=== PATIENT | male | born 1960 | race Caucasian/White ===

== ENCOUNTER 2017-10-14 11:33 | Emergency (ER) | payer BC ==
[2017-10-14] MEDS ORDERED: 0.9 % SODIUM CHLORIDE 1,000 ML BAG IV ONE ×2 (11:45→11:48)
[2017-10-14] MEDS ORDERED: ONDANSETRON HCL IV 4 MG/2 ML VIAL IVP ONE (11:48)
--- NOTE | 2017-10-14 11:49 | Emergency Department Record ---
History of Present Illness - General Chief Complaint: Cough Stated Complaint: COUGHING/LOOSE STOOLS/VOMITING Time Seen by Provider: 10/14/17 11:44 Source: Patient Mode of Arrival: Ambulatory Limitations: No limitations - History of Present Illness Initial Comments: 57 yo male presents with nausea, vomiting and loose stools for about 3 days. He has some associated abdominal pain. He reports a history of diverticulitis in the past. He reports the symptoms are similar. No fever. He has also had an associated cough with sputum for a month. He continues to smoke. No PCP. MD Complaint: Abdominal pain Onset/Timin -: Days(s) Location: LLQ Radiation: LLQ Severity: Moderate Quality: Aching Consistency: Constant Improves With: Nothing Worsens With: Eating - Related Data Previous Rx's Medication Instructions Recorded Amoxicillin/Potassium Clav 1 tab PO BID #14 tab 10/14/17 [Augmentin 875-125 Tablet] Ondansetron [Zofran Odt] 4 mg PO Q8H #15 tab.rapdis 10/14/17 Allergies Allergy/AdvReac Type Severity Reaction Status Date / Time No Known Allergies Allergy HYPERSENSIT Verified 10/14/17 11:45 IVITY Travel Screening - Travel/Exposure Within Last 30 Days Have you traveled within the last 30 days?: No - Travel/Exposure Within Last Year Have you traveled outside the [place] in the last year?: No - Additonal Travel Details Have you been exposed to anyone with a communicable illness?: No - Travel Symptoms Symptom Screening: None Review of Systems Constitutional: Denies: Chills, Fever, Malaise, Weakness Eyes: Denies: Eye discharge, Eye pain, Photophobia, Vision change ENT: Reports: Congestion Respiratory: Reports: Cough Cardiovascular: Denies: Chest pain, Edema, Palpitations, Syncope Endocrine: Denies: Fatigue, Polydipsia, Polyuria Gastrointestinal: Reports: Abdominal pain, Diarrhea, Nausea, Vomiting Genitourinary: Denies: Dysuria, Frequency, Hematuria Musculoskeletal: Denies: Arthralgia, Back pain, Myalgia Skin: Denies: Bruising, Change in color, Rash Neurological: Denies: Headache, Numbness, Weakness Psychiatric: Denies: Anxiety Hematological/Lymphatic: Denies: Blood Clots, Easy bleeding, Easy bruising, Swollen glands Past Medical History - SOCIAL HISTORY Smoking Status: Current every day smoker Alcohol Use: None, Rare Drug Use: None - RESPIRATORY Hx Asthma: Yes - CARDIOVASCULAR Hx Cardio Disorders: Yes Hx Hypertension: Yes Comment:: hyperlipidemia - NEURO Hx Neuro Disorders: No - GI Hx Diverticulitis: Yes Hx Reflux: Yes - Hx Genitourinary Disorders: No - ENDOCRINE Hx Endocrine Disorders: No - MUSCULOSKELETAL Hx Musculoskeletal Disorders: No - PSYCH Hx Psych Problems: No - HEMATOLOGY/ONCOLOGY Hx Hematology/Oncology Disorders: No Family Medical History Any Significant Family History?: Yes Physical Exam - General General Appearance: Alert, Oriented x3, Cooperative, No acute distress - Head Head exam: Atraumatic, Normal inspection - Eye Eye exam: Normal appearance. negative: Conjunctival injection - ENT ENT exam: Normal exam, Mucous membranes moist Ear exam: Normal external inspection Nasal Exam: Normal inspection Mouth exam: Normal external inspection - Neck Neck exam: Normal inspection, Full ROM. negative: Tenderness - Respiratory Respiratory exam: Decreased breath sounds, Rhonchi. negative: Accessory muscle use, Prolonged expiratory, Respiratory distress, Stridor, Wheezes - Cardiovascular Cardiovascular Exam: Regular rate, Normal rhythm, Normal heart sounds Peripheral Pulses: 2+: Radial (R), Radial (L) - GI/Abdominal GI/Abdominal exam: Soft, Tenderness. negative: Distended, Guarding, Rebound, Rigid - Rectal Rectal exam: Deferred - exam: Deferred - Extremities Extremities exam: Normal inspection, Full ROM, Normal capillary refill. negative: Tenderness - Back Back exam: Reports: Normal inspection, Full ROM. Denies: Muscle spasm, Rash noted, Tenderness - Neurological Neurological exam: Alert, Normal gait, Oriented X3 - Psychiatric Psychiatric exam: Normal affect, Normal mood - Skin Skin exam: Dry, Intact, Normal color, Warm Course Vital Signs 10/14/17 11:39 Temperature 97.9 F Pulse Rate 69 Respiratory 18 Rate Blood Pressure 165/100 Pulse Ox 96 - Reevaluation(s) Reevaluation #1: 10/14/17 13:16 The labs were reviewed No acute changes on the CBC, CMP or Lipase. 10/14/17 13:[address] scan of the abdomen and pelvis was negative for acute changes. Diverticulosis with diverticulitis. CXR was negative His vitals are unremarkable, the labs are negative. He will be given antibiotics for his productive cough and zofran for nausea Medical Decision Making - Lab Data Result diagrams: 10/14/17 11:52 10/14/17 11:52 Disposition Disposition: Discharge Clinical Impression: Bronchitis, Diarrhea Disposition: Home, Self-Care Condition: (1) Good Instructions: Acute Bronchitis (ED), Diverticulosis (ED) Additional Instructions: Rest and stay well hydrated Return if worse, fever, vomiting uncontrolled or any new concerns Call Dr Torres for close follow up Prescriptions: Amoxicillin/Potassium Clav [Augmentin 875-125 Tablet] 1 tab PO BID #14 tab Ondansetron [Zofran Odt] 4 mg PO Q8H #15 tab.rapdis Forms: Patient Portal Access Time of Disposition: 13:40 Quality - Quality Measures Quality Measures: N/A - Blood Pressure Screening Does Patient Have Any of the Following: No Blood Pressure Classification: Hypertensive Reading Systolic Measurement: 165 Diastolic Measurement: 100 Screening for High Blood Pressure: < Pre-Hypertensive BP, F/U Documented > [ G8950] Pre-Hypertensive Follow-up Interventions: Referral to alternative/primary care provider.
[2017-10-14 12:11] LABS: GRAN % 68.7 % (47-80); HEMATOCRIT 48.9 % (42.0-52.0); HEMOGLOBIN 17.1 gm/dl (14.0-18.0); LYMPH % 18.6 % (16-45); MEAN CELL VOLUME 90.4 fl (81-97); MEAN CORPUSCULAR HEMOGLOBIN 31.6 pg (27-33); MEAN PLATELET VOLUME 9.5 fl (7.4-10.4); MONO % 10.7 % (0-9); PLATELET COUNT 247 K/uL (130-400); RED BLOOD COUNT 5.41 M/uL (4.40-5.70); RED CELL DISTRIBUTION WIDTH 14.7 % (11.5-14.5); WHITE BLOOD COUNT W/O DIFF 7.3 K/uL (4.2-12.2)
[2017-10-14 12:22] LABS: BLOOD UREA NITROGEN 18 mg/dL (6-20); CREATININE 0.7 mg/dL (0.7-1.2); EST GLOMERULAR FILTRATION RATE > 60 mL/min; TOTAL PROTEIN 7.2 g/dL (6.6-8.7)
[2017-10-14 12:24] LABS: GLUCOSE,RANDOM 113 mg/dL (74-109)
[2017-10-14 12:27] LABS: ALBUMIN 3.9 g/dL (4.0-5.0); ALKALINE PHOSPHATASE 99 U/L (40-129); ALT/SGPT 11 U/L (<41); AST/SGOT 20 U/L (10.0-50.0); BILIRUBIN,DIRECT 0.2 mg/dL (0-0.3); LIPASE 40 U/L (13-60)
--- NOTE | 2017-10-15 07:59 | RADIOLOGY REPORT ---
EXAM: CHEST, TWO VIEWS HISTORY: PRODUCTIVE COUGH FOR ONE MONTH. TECHNIQUE: Two views of the chest were obtained. Comparison: Abdomen CT same day. FINDINGS: The lungs are clear. The cardiac silhouette, diaphragm and osseous structures are unremarkable for age. IMPRESSION: NEGATIVE CHEST EXAMINATION. JOB NUMBER: [id number] MTDD
--- NOTE | 2017-10-15 08:05 | CT SCAN REPORT ---
EXAM: ABDOMEN AND PELVIS CT WITH IV CONTRAST HISTORY: ACUTE LEFT LOWER QUADRANT ABDOMINAL PAIN, NAUSEA, VOMITING AND DIARRHEA FOR ONE WEEK. HISTORY OF APPENDECTOMY AND HERNIA REPAIR. TECHNIQUE: Contiguous axial images from the lung bases to the symphysis pubis were obtained after the uneventful intravenous administration of 100 ml of Omnipaque 300. Oral contrast was also utilized. Comparison: Abdomen and pelvis CT 11/15/10. FINDINGS: There are two 3 mm nodules in the left lower lobe with no significance. The lung bases are clear. The liver and spleen are unremarkable. 1 cm cyst mid left kidney as well as lower pole left kidney. Normal right kidney. The adrenals, pancreas and gallbladder are normal. The visualized loops of small bowel are of normal caliber with no wall thickening. Small amount of fecal material throughout nondistended colon. Extensive diverticulosis of the descending colon and sigmoid colon without evidence of acute diverticulitis. No free intraperitoneal fluid or adenopathy. Mild calcification of the abdominal aorta with no aneurysm. The mesenteric vessels are patent. The urinary bladder is decompressed. The abdominal wall is unremarkable. Left hip arthroplasty. No lytic or blastic osseous lesion. IMPRESSION: 1. NO ACUTE INFLAMMATORY PROCESS OF THE ABDOMEN OR PELVIS. 2. EXTENSIVE SIGMOID COLON DIVERTICULOSIS WITH NO EVIDENCE OF DIVERTICULITIS. 3. BENIGN BOSNIAK TYPE 1 LEFT RENAL CYSTS. JOB NUMBER: [id number] [facility]
== END 2017-10-14 14:04 | disposition home or self-care (01) ==
LOC: ER 11:33
DX: J20.9 Acute bronchitis, unspecified (principal); R19.7 Diarrhea, unspecified; R11.2 Nausea with vomiting, unspecified; R10.32 Left lower quadrant pain
CPT/HCPCS: 99284 ×2; 96374; 96361; 83690; 85025; 80076; 80048; 71020; 74177; Q9967; J2405; J7030

== ENCOUNTER 2017-10-19 16:58 | Emergency (ER) | payer BC ==
[2017-10-19] MEDS ORDERED: ONDANSETRON HCL IV 4 MG/2 ML VIAL IV ONE (17:03)
[2017-10-19] MEDS ORDERED: 0.9 % SODIUM CHLORIDE 1,000 ML BAG IV ONE (17:03)
[2017-10-19] MEDS ORDERED: PANTOPRAZOLE SODIUM IV 40 MG VIAL IVP ONE (17:03)
--- NOTE | 2017-10-19 17:11 | Emergency Department Record ---
History of Present Illness - General Chief Complaint: Abdominal Pain Stated Complaint: ABD PAIN Time Seen by Provider: 10/19/17 17:03 Source: Patient, Family Mode of Arrival: Ambulatory Limitations: No limitations - History of Present Illness Initial Comments: 57 yo male presents with abdominal pain with eating. The onset was about one week ago. The pain started with loose stools. The loose stools have stopped. No fever. He reports he continues to have a decreased appetite. He states when he eats he gets pain pointing to the RUQ. The diarrhea has stopped. He also had a cough initially that has stopped as well. No blood in the stool or vomit. The patient was seen in the ER on 10/14 and had normal labs and normal CT scan. He states he is tolerating PO fluids but solid foods cause pain soon after eating and improve between means. MD Complaint: Abdominal pain -: Week(s) (7) Location: RUQ Radiation: RUQ Migration to: RUQ Severity: Moderate Quality: Cramping Consistency: Intermittent Improves With: Nothing Worsens With: Eating Associated Symptoms: Nausea, Vomiting, Other (Resolved cough and diarrhea) - Related Data Previous Rx's Medication Instructions Recorded Amoxicillin/Potassium Clav 1 tab PO BID #14 tab 10/14/17 [Augmentin 875-125 Tablet] Ondansetron [Zofran Odt] 4 mg PO Q8H #15 tab.rapdis 10/14/17 Hydrocodone/Acetaminophen [Williams 1 each PO Q6H #15 tablet 10/19/17 5-325 Tablet] Ondansetron [Zofran Odt] 4 mg PO Q8H #20 tab.rapdis 10/19/17 Allergies Allergy/AdvReac Type Severity Reaction Status Date / Time No Known Allergies Allergy HYPERSENSIT Verified 10/14/17 11:45 IVITY Review of Systems Constitutional: Denies: Chills, Fever, Malaise, Night sweats, Weakness Eyes: Denies: Eye discharge, Eye pain ENT: Denies: Congestion, Dental pain, Throat pain Respiratory: Denies: Cough (resolved), Dyspnea, Hemoptysis, Stridor, Wheezes Cardiovascular: Denies: Chest pain, Syncope Endocrine: Denies: Fatigue, Polydipsia, Polyuria Gastrointestinal: Reports: As per HPI, Abdominal pain, Nausea, Vomiting. Denies : Diarrhea (resolved), Hematochezia, Melena Genitourinary: Denies: Dysuria, Frequency, Hematuria Musculoskeletal: Denies: Arthralgia, Back pain, Joint swelling, Myalgia, Neck pain Neurological: Denies: Confusion, Headache, Numbness, Weakness Psychiatric: Denies: Anxiety Hematological/Lymphatic: Denies: Blood Clots, Easy bleeding, Easy bruising, Swollen glands Past Medical History - SOCIAL HISTORY Smoking Status: Current every day smoker Drug Use: None - RESPIRATORY Hx Asthma: Yes - CARDIOVASCULAR Hx Cardio Disorders: Yes Hx Hypertension: Yes Comment:: hyperlipidemia - NEURO Hx Neuro Disorders: No - GI Hx Diverticulitis: Yes Hx Reflux: Yes - Hx Genitourinary Disorders: No - ENDOCRINE Hx Endocrine Disorders: No - MUSCULOSKELETAL Hx Musculoskeletal Disorders: No - PSYCH Hx Psych Problems: No - HEMATOLOGY/ONCOLOGY Hx Hematology/Oncology Disorders: No Physical Exam - General General Appearance: Alert, Oriented x3, Cooperative, No acute distress Limitations: No limitations - Head Head exam: Atraumatic, Normal inspection - Eye Eye exam: Normal appearance. negative: Conjunctival injection, Periorbital swelling, Scleral icterus - ENT ENT exam: Normal exam, Mucous membranes moist Ear exam: Normal external inspection Nasal Exam: Normal inspection Mouth exam: Normal external inspection - Neck Neck exam: Normal inspection, Full ROM. negative: Tenderness - Respiratory Respiratory exam: Normal lung sounds bilaterally. negative: Respiratory distress - Cardiovascular Cardiovascular Exam: Regular rate, Normal rhythm, Normal heart sounds - GI/Abdominal GI/Abdominal exam: Soft, Tenderness (tender in the RUQ, soft non distended abdomen. the remainder of the abdomen is very soft and non tender) Course - Reevaluation(s) Reevaluation #1: 10/19/17 18:30 The CBC and CMP were reviewed No acute changes on the CBC The Lipase is elevated at 153 10/19/17 18:36 The patient is feeling much better he is tolerating PO fluids well I offered admission to the hospital for fluids and pain control for the abdominal pain with mild increase in Lipase He declined. He would like to be DC home and recheck in the ED this weekend I discussed the mild elevation in the Lipase. I explained a liquid diet over the weekend, no alcohol. I explained his negative recent CT on 10/14 and the negative US today He will be rechecked by me this weekend. If not improving recommend admission for further testing. 10/19/17 18:42 Medical Decision Making - Lab Data Result diagrams: 10/19/17 17:15 10/19/17 17:15 Disposition Disposition: Discharge Clinical Impression: Abdominal pain, Pancreatitis Disposition: Home, Self-Care Condition: (1) Good Instructions: Pancreatitis (ED), Abdominal Pain (ED) Additional Instructions: Return immediately if worse, vomiting, fever or any new symptoms Return to the ED on Sunday for a recheck You are to have clear liquids only until follow up Prescriptions: Hydrocodone/Acetaminophen [Williams 5-325 Tablet] 1 each PO Q6H #15 tablet Ondansetron [Zofran Odt] 4 mg PO Q8H #20 tab.rapdis Referrals: PAULINO BRASWELL [MEDICAL DOCTOR] - Forms: Patient Portal Access Time of Disposition: 18:40 Quality - Quality Measures Quality Measures: N/A - Blood Pressure Screening Does Patient Have Any of the Following: No Blood Pressure Classification: Hypertensive Reading Systolic Measurement: 183 Diastolic Measurement: 93 Screening for High Blood Pressure: < Pre-Hypertensive BP, F/U Documented > [ G8950] Pre-Hypertensive Follow-up Interventions: Referral to alternative/primary care provider.
[2017-10-19 17:38] LABS: BASO % 0.4 % (0-6); EOS % 0.5 % (0-6); GRAN % 72.3 % (47-80); HEMATOCRIT 47.6 % (42.0-52.0); HEMOGLOBIN 16.7 gm/dl (14.0-18.0); LYMPH % 16.6 % (16-45); MEAN CORPUSCULAR HEMOGLOBIN 31.6 pg (27-33); MEAN CORPUSCULAR HGB CONC 35.1 g/dl (32-36); MEAN PLATELET VOLUME 9.8 fl (7.4-10.4); MONO % 10.2 % (0-9); PLATELET COUNT 245 K/uL (130-400); RED BLOOD COUNT 5.29 M/uL (4.40-5.70); RED CELL DISTRIBUTION WIDTH 14.6 % (11.5-14.5); WHITE BLOOD COUNT W/O DIFF 10.9 K/uL (4.2-12.2)
[2017-10-19 17:46] LABS: INR 0.94; PARTIAL THROMBOPLASTIN TIME 28.7 SECONDS (24.5-39.1); PROTHROMBIN TIME (PATIENT) 10.1 SECONDS (9.5-12.1)
[2017-10-19 18:13] LABS: URINE APPEARANCE CLEAR; URINE BILIRUBIN NEGATIVE (NEGATIVE); URINE BLOOD SMALL (NEGATIVE); URINE COLOR YELLOW; URINE GLUCOSE (UA) NEGATIVE (NEGATIVE); URINE KETONE NEGATIVE (NEGATIVE); URINE LEUKOCYTE ESTERASE NEGATIVE (NEGATIVE); URINE NITRITE NEGATIVE (NEGATIVE); URINE UROBILINOGEN 0.2 E.U./dL (0.20 - 1.00)
[2017-10-19 18:17] LABS: BLOOD UREA NITROGEN 21 mg/dL (6-20); CREATININE 0.9 mg/dL (0.7-1.2); EST GLOMERULAR FILTRATION RATE > 60 mL/min
[2017-10-19 18:18] LABS: TOTAL PROTEIN 7.3 g/dL (6.6-8.7)
[2017-10-19 18:20] LABS: GLUCOSE,RANDOM 129 mg/dL (74-109)
[2017-10-19 18:22] LABS: ALBUMIN 3.7 g/dL (4.0-5.0); ALT/SGPT 15 U/L (<41); AST/SGOT 24 U/L (10.0-50.0)
[2017-10-19 18:23] LABS: ALKALINE PHOSPHATASE 108 U/L (40-129); LIPASE 153 U/L (13-60)
[2017-10-19 18:25] LABS: URINE BACTERIA NONE SEEN; URINE EPITHELIAL CELLS 0 - 2 (FEW); URINE WBC 0 - 2 (0-2/hpf)
[2017-10-19 18:26] LABS: URINE MUCUS HEAVY
--- NOTE | 2017-10-20 11:21 | ULTRASOUND REPORT ---
DATE: 10/19/2017 at 1718 hours. EXAM: ABDOMINAL ULTRASOUND. HISTORY: Intermittent right upper abdominal pain with eating for three weeks. COMPARISON: Abdomen and pelvis CT dated 10/14/2017. TECHNIQUE: Realtime grayscale sonographic imaging of the abdomen was performed. FINDINGS: The liver and spleen are not enlarged and appear homogeneous. No biliary dilatation. The common duct measures 3.0 mm in diameter; within normal limits. The gallbladder is normal without gallstones, gallbladder wall thickening, or pericholecystic fluid. Sonographic Acuna's sign is negative. Unilocular cyst in the mid left kidney measures 1.0 cm. No calculi or hydronephrosis. Normal right kidney. The right kidney measures 10.4 x 4.9 x 5.3 cm, and the left kidney measures 10.1 x 5.3 x 5.4 cm. The pancreas, abdominal aorta, and inferior vena cava are unremarkable. IMPRESSION: 1. NORMAL GALLBLADDER WITH NO BILIARY DILATATION. 2. BENIGN BOSNIAK TYPE 1 LEFT RENAL CYST. JOB NUMBER: [id number] MTDD
== END 2017-10-19 18:48 | disposition home or self-care (01) ==
LOC: ER 16:58
DX: K85.90 Acute pancreatitis without necrosis or infection, unspecified (principal); R10.11 Right upper quadrant pain; R11.0 Nausea
CPT/HCPCS: 99284 ×2; 96374; 96375; 96361; 83690; 85025; 85730; 85610; 80053; 81001; 76700; J2405; C9113; J7030

== ENCOUNTER 2018-01-12 16:37 | Inpatient (IN) | payer SELFPAY ==
[2018-01-12] MEDS ORDERED: 0.9 % SODIUM CHLORIDE 1,000 ML BAG IV ONE (18:02)
[2018-01-12] MEDS ORDERED: ONDANSETRON HCL IV 4 MG/2 ML VIAL IV ONE (18:02)
[2018-01-12] MEDS ORDERED: HYDROMORPHONE HCL 2 MG/ML VIAL IVP ONE ×2 (18:02→18:53)
--- NOTE | 2018-01-12 18:02 | Emergency Department Record ---
History of Present Illness - General Chief complaint: Vomiting blood Stated complaint: Abdominal pain. Time Seen by Provider: 01/12/18 17:54 Source: Patient Mode of Arrival: Ambulatory Limitations: No limitations - History of Present Illness Initial comments: The patient is here due to abdominal pain for 7 days. The pain is in the mid abdomen and is associated with nausea and vomiting. The patient states he did vomit blood up last Sunday 5 days ago but none since. He states he has had similar issues with Diverticulitis in the past. He also has been a heavy drinker but stopped 7 days ago when the pain started. The patient has not had a BM in a few days and denies any bloody stool or black stools. He has not had any abdominal surgeries. MD complaint: Other Onset/Timin -: Days(s) Associated Symptoms: Abdominal pain, Nausea, Vomiting Treatments Prior to Arrival: None - Related Data Previous Rx's Medication Instructions Recorded Amoxicillin/Potassium Clav 1 tab PO BID #14 tab 10/14/17 [Augmentin 875-125 Tablet] Allergies Allergy/AdvReac Type Severity Reaction Status Date / Time No Known Allergies Allergy HYPERSENSIT Verified 01/12/18 17:03 IVITY Travel Screening - Travel/Exposure Within Last 30 Days Have you traveled within the last 30 days?: No - Travel/Exposure Within Last Year Have you traveled outside the [place] in the last year?: No - Additonal Travel Details Have you been exposed to anyone with a communicable illness?: No - Travel Symptoms Symptom Screening: None Review of Systems Constitutional: Denies: Chills, Fever Eyes: Denies: Eye discharge ENT: Denies: Congestion Respiratory: Denies: Cough, Dyspnea Cardiovascular: Denies: Chest pain Endocrine: Denies: Fatigue Gastrointestinal: Reports: Abdominal pain, Nausea, Vomiting. Denies: Diarrhea Genitourinary: Denies: Dysuria Musculoskeletal: Denies: Arthralgia Past Medical History - SOCIAL HISTORY Smoking Status: Current every day smoker Alcohol Use: Heavy Alcohol Use Comment: stopped 1 wk ago Drug Use: None - RESPIRATORY Hx Asthma: Yes - CARDIOVASCULAR Hx Cardio Disorders: Yes Hx Hypertension: Yes Comment:: hyperlipidemia - NEURO Hx Neuro Disorders: No - GI Hx GI Disorders: Yes Hx Diverticulitis: Yes Hx Reflux: Yes - Hx Genitourinary Disorders: No - ENDOCRINE Hx Endocrine Disorders: No - MUSCULOSKELETAL Hx Musculoskeletal Disorders: No - PSYCH Hx Psych Problems: No - HEMATOLOGY/ONCOLOGY Hx Hematology/Oncology Disorders: No Family Medical History Any Significant Family History?: Yes Hx Diabetes: Mother Hx Heart Disease: Father Physical Exam - General General Appearance: Alert, Oriented x3, Cooperative, Mild distress (due to AP.) - Head Head exam: Atraumatic, Normocephalic, Normal inspection - Eye Eye exam: Normal appearance, PERRL - ENT Throat exam: Normal inspection. negative: Tonsillar erythema, Tonsillar exudate - Neck Neck exam: Normal inspection, Full ROM. negative: Tenderness - Respiratory Respiratory exam: Normal lung sounds bilaterally. negative: Respiratory distress - Cardiovascular Cardiovascular Exam: Regular rate, Normal rhythm, Normal heart sounds - GI/Abdominal GI/Abdominal exam: Guarding, Tenderness (There is significant tenderness in the mid abdomen.). negative: Soft, Distended - Rectal Rectal exam: Other (Refused rectal.) - Extremities Extremities exam: Normal inspection, Full ROM, Normal capillary refill. negative: Tenderness - Neurological Neurological exam: Alert. negative: Motor sensory deficit Course Vital Signs 01/12/18 17:08 Temperature 97.8 F Pulse Rate 92 H Respiratory 16 Rate Blood Pressure 137/97 Pulse Ox 96 - Reevaluation(s) Reevaluation #1: The patient is doing a little better but is still having some pain. His WBC is elevated with a normal HGB. We will order an abdominal CT for further evaluation of his abdomen. The patient's care will be turned over to Dr. Vazquez at 19:00 due to shift change. 01/12/18 18:59 Medical Decision Making - Lab Data Result diagrams: 01/12/18 18:16 01/12/18 18:16 Disposition Forms: Patient Portal Access Quality - Quality Measures Quality Measures: N/A - Blood Pressure Screening View Details: Yes Does Patient Have Any of the Following: No, Active Dx of HTN Blood Pressure Classification: Hypertensive Reading Systolic Measurement: 137 Diastolic Measurement: 97 Screening for High Blood Pressure: Patient Exclusion, Hx of HTN [G9744]
[2018-01-12 18:21] LABS: HEMATOCRIT 44.8 % (42.0-52.0); HEMOGLOBIN 15.6 gm/dl (14.0-18.0); MEAN CELL VOLUME 96.3 fl (81-97); MEAN CORPUSCULAR HEMOGLOBIN 33.5 pg (27-33); MEAN CORPUSCULAR HGB CONC 34.8 g/dl (32-36); MEAN PLATELET VOLUME 9.6 fl (7.4-10.4); PLATELET COUNT 169 K/uL (130-400); RED BLOOD COUNT 4.65 M/uL (4.40-5.70); RED CELL DISTRIBUTION WIDTH 13.6 % (11.5-14.5); WHITE BLOOD COUNT W/O DIFF 15.4 K/uL (4.2-12.2)
[2018-01-12 18:31] LABS: BLOOD UREA NITROGEN 15 mg/dL (6-20); CREATININE 0.4 mg/dL (0.7-1.2); EST GLOMERULAR FILTRATION RATE > 60 mL/min
[2018-01-12 18:32] LABS: TOTAL PROTEIN 6.8 g/dL (6.6-8.7)
[2018-01-12 18:34] LABS: GLUCOSE,RANDOM 120 mg/dL (74-109)
[2018-01-12 18:36] LABS: ALT/SGPT 11 U/L (<41); BILIRUBIN,DIRECT 0.2 mg/dL (0-0.3)
[2018-01-12 18:54] LABS: AST/SGOT 15 U/L (10.0-50.0)
[2018-01-12] MEDS ORDERED: POTASSIUM CHLORIDE 20 MEQ TABLET PO ONE (18:54)
[2018-01-12 18:55] LABS: ALKALINE PHOSPHATASE 137 U/L (40-129); LIPASE 80 U/L (13-60)
--- NOTE | 2018-01-12 20:41 | Emergency Department Record ---
History of Present Illness - General Chief complaint: Vomiting blood Stated complaint: Abdominal pain. Time Seen by Provider: 01/12/18 17:54 Source: Patient Mode of Arrival: Ambulatory Limitations: No limitations - History of Present Illness MD complaint: Other Onset/Timin -: Days(s) Associated Symptoms: Abdominal pain, Nausea, Vomiting Treatments Prior to Arrival: None - Related Data Previous Rx's Medication Instructions Recorded Amoxicillin/Potassium Clav 1 tab PO BID #14 tab 10/14/17 [Augmentin 875-125 Tablet] Allergies Allergy/AdvReac Type Severity Reaction Status Date / Time No Known Allergies Allergy HYPERSENSIT Verified 01/12/18 17:03 IVITY Travel Screening - Travel/Exposure Within Last 30 Days Have you traveled within the last 30 days?: No - Travel/Exposure Within Last Year Have you traveled outside the [place] in the last year?: No - Additonal Travel Details Have you been exposed to anyone with a communicable illness?: No - Travel Symptoms Symptom Screening: None Review of Systems Constitutional: Denies: Chills, Fever Eyes: Denies: Eye discharge ENT: Denies: Congestion Respiratory: Denies: Cough, Dyspnea Cardiovascular: Denies: Chest pain Endocrine: Denies: Fatigue Gastrointestinal: Reports: Abdominal pain, Nausea, Vomiting. Denies: Diarrhea Genitourinary: Denies: Dysuria Musculoskeletal: Denies: Arthralgia Past Medical History - SOCIAL HISTORY Smoking Status: Current every day smoker Alcohol Use: Heavy Alcohol Use Comment: stopped 1 wk ago Drug Use: None - RESPIRATORY Hx Asthma: Yes - CARDIOVASCULAR Hx Cardio Disorders: Yes Hx Hypertension: Yes Comment:: hyperlipidemia - NEURO Hx Neuro Disorders: No - GI Hx GI Disorders: Yes Hx Diverticulitis: Yes Hx Reflux: Yes - Hx Genitourinary Disorders: No - ENDOCRINE Hx Endocrine Disorders: No - MUSCULOSKELETAL Hx Musculoskeletal Disorders: No - PSYCH Hx Psych Problems: No - HEMATOLOGY/ONCOLOGY Hx Hematology/Oncology Disorders: No Family Medical History Any Significant Family History?: Yes Hx Diabetes: Mother Hx Heart Disease: Father Physical Exam - General Limitations: No limitations Course Vital Signs 01/12/18 01/12/18 01/12/18 17:08 18:41 19:05 Temperature 97.8 F Pulse Rate 92 H Pulse Rate [ 68 65 Pulse Ox Probe] Respiratory 16 20 20 Rate Blood Pressure 137/97 Blood Pressure 133/86 132/84 [Left Arm] Pulse Ox 96 97 96 01/12/18 19:59 Temperature Pulse Rate Pulse Rate [ 75 Pulse Ox Probe] Respiratory 18 Rate Blood Pressure Blood Pressure 143/90 [Left Arm] Pulse Ox 97 - Reevaluation(s) Reevaluation #1: 01/12/18 20:[address] scan was reviewed The CT is consistent with acute pancreatitis. No acute complications. Local inflammation noted. Given his pain and vomiting recommend admission, IVF, supportive treatment. 01/12/18 20:45 The case was discussed with Dr Mccormack for admission for acute pancreatitis. Medical Decision Making - Lab Data Result diagrams: 01/12/18 18:16 01/12/18 18:16 Lab Results 01/12/18 01/12/18 01/12/18 Range/Units 18:14 18:16 18:16 WBC 15.4 H (4.2-12.2) K/uL RBC 4.65 (4.40-5.70) M/uL Hgb 15.6 (14.0-18.0) gm/dl Hct 44.8 (42.0-52.0) % MCV 96.3 (81-97) fl MCH 33.5 H (27-33) pg MCHC 34.8 (32-36) g/dl RDW 13.6 (11.5-14.5) % Plt Count 169 (130-400) K/uL MPV 9.6 (7.4-10.4) fl Neutrophils % 86.0 H (47-80) % Eosinophils % Not Reportable Basophils % Not Reportable Lymphocytes 6.0 L (16-45) % Monocytes 7.0 (0-9) % Eosinophil Count 1.0 (0-6) % Sodium 131 L (136-145) mmol/L Potassium 3.0 L (3.4-4.5) mmol/L Chloride 88 L (98-107) mmol/L Carbon Dioxide 32.0 H (22-29) mmol/L Anion Gap 11.0 (7-16) BUN 15 (6-20) mg/dL Creatinine 0.4 L (0.7-1.2) mg/dL Estimated GFR > 60 mL/min Random Glucose 120 H (74-109) mg/dL Calcium 8.9 (8.6-10.0) mg/dL Total Bilirubin 0.60 (0.2-1.0) mg/dL Direct Bilirubin 0.2 (0-0.3) mg/dL AST 15 (10.0-50.0) U/L ALT 11 (<41) U/L Alkaline Phosphatase 137 H (40-129) U/L Total Protein 6.8 (6.6-8.7) g/dL Albumin 3.0 L (4.0-5.0) g/dL Lipase 80 H (13-60) U/L Ethyl Alcohol 0.010 (0-0.010) g/dL Disposition Disposition: Admit Clinical Impression: Pancreatitis Qualifiers: Chronicity: acute Pancreatitis type: alcohol induced Acute pancreatitis complication: unspecified Qualified Code(s): K85.20 - Alcohol induced acute pancreatitis without necrosis or infection Abdominal pain Qualifiers: Abdominal location: unspecified location Qualified Code(s): R10.9 - Unspecified abdominal pain Disposition: Still a Patient at [facility] Decision to Admit: Admit from ER Decision to Admit Date: 01/12/18 Decision to Admit Time: 20:39 Time Discussed w/Accepting Physician: 20:39 Condition: (2) Stable Time of Disposition: 20:39 Quality - Quality Measures Quality Measures: N/A - Blood Pressure Screening Does Patient Have Any of the Following: Active Dx of HTN Blood Pressure Classification: Hypertensive Reading Systolic Measurement: 137 Diastolic Measurement: 97 Screening for High Blood Pressure: Patient Exclusion, Hx of HTN [G9744]
[2018-01-12] MEDS ORDERED: POTASSIUM CHLORIDE/D5-0.9%NACL 20 MEQ/1,000 ML BAG IV ONE (21:32)
[2018-01-12] MEDS ORDERED: HYDROMORPHONE HCL 1 MG/ML SYRINGE IM PRN (21:32)
[2018-01-13 06:42] LABS: BASO % 0.1 % (0-6); EOS % 0.1 % (0-6); HEMATOCRIT 44.2 % (42.0-52.0); HEMOGLOBIN 14.8 gm/dl (14.0-18.0); LYMPH % 3.7 % (16-45); MEAN CELL VOLUME 98.4 fl (81-97); MEAN CORPUSCULAR HGB CONC 33.5 g/dl (32-36); MEAN PLATELET VOLUME 9.5 fl (7.4-10.4); MONO % 8.8 % (0-9); PLATELET COUNT 176 K/uL (130-400); RED BLOOD COUNT 4.49 M/uL (4.40-5.70); RED CELL DISTRIBUTION WIDTH 13.6 % (11.5-14.5)
[2018-01-13 07:35] LABS: ALB/GLOB RATIO 0.9 (1.1-1.8); ALBUMIN 2.8 g/dL (4.0-5.0); ALKALINE PHOSPHATASE 124 U/L (40-129); ALT/SGPT 9 U/L (<41); AST/SGOT 16 U/L (10.0-50.0); BLOOD UREA NITROGEN 12 mg/dL (6-20); CREATININE 0.5 mg/dL (0.7-1.2); EST GLOMERULAR FILTRATION RATE > 60 mL/min; GLUCOSE,RANDOM 149 mg/dL (74-109); LIPASE 86 U/L (13-60); TOTAL PROTEIN 5.8 g/dL (6.6-8.7)
[2018-01-13 08:28] LABS: PLATELET ESTIMATE NORMAL (NORMAL); TOXIC GRANULATION 1+
[2018-01-13] MEDS: AMLODIPINE BESYLATE 5MG TAB PO SCH (09:38)
[2018-01-13] MEDS: NICOTINE14 MG/24 HOUR PATCH TD SCH (09:38)
[2018-01-13] MEDS: HYDROMORPHONE HCL 2 MG/ML VIAL IM PRN ×4 (09:45→23:28)
--- NOTE | 2018-01-13 12:05 | History & Physical ---
History of Present Illness - Date of Service Date of Service for History & Physical: 01/13/18 - History of Present Illness Admitting Diagnosis: pancreatitis History of Present Illness: Mr. Hernandez is a 57 y/o male who presents with acute onset abdominal pain, nausea and vomiting. The patient admits to drinking 1 liter of liqour daily for many years and has been in rehab on several occasions for his alcoholism. He reports that he has had pancreatitis several times in the past and was admitted to hospital in [place]. He does not have a primary care doctor but goes to [facility] for refill of his blood pressure medication which he cannot recall at this time. On admission to the ED the patient had a CT abdomen done which showed a localized area of pancreatic inflammation and not necrosis or fluid. Labs showed mild elevation in lipase but other labs were within normal limits. He was bolused 1 liter of normal saline and started on IV Dilaudid for pain control. Travel Screening - Travel/Exposure Within Last 30 Days Have you traveled within the last 30 days?: No - Travel/Exposure Within Last Year Have you traveled outside the [place] in the last year?: No - Additonal Travel Details Have you been exposed to anyone with a communicable illness?: No - Travel Symptoms Symptom Screening: None Review of Systems Constitutional: Denies: Chills, Fever Eyes: Denies: Eye discharge ENT: Denies: Congestion Respiratory: Denies: Cough, Dyspnea Cardiovascular: Denies: Chest pain Endocrine: Denies: Fatigue Gastrointestinal: Reports: Abdominal pain, Nausea, Vomiting. Denies: Diarrhea Genitourinary: Denies: Dysuria Musculoskeletal: Denies: Arthralgia Past Medical History - SOCIAL HISTORY Smoking Status: Current every day smoker Alcohol Use: Heavy Alcohol Use Comment: stopped 1 wk ago Drug Use: None - RESPIRATORY Hx Asthma: Yes - CARDIOVASCULAR Hx Cardio Disorders: Yes Hx Hypertension: Yes Comment:: hyperlipidemia - NEURO Hx Neuro Disorders: No - GI Hx GI Disorders: Yes Hx Diverticulitis: Yes Hx Reflux: Yes - Hx Genitourinary Disorders: No - ENDOCRINE Hx Endocrine Disorders: No - MUSCULOSKELETAL Hx Musculoskeletal Disorders: No - PSYCH Hx Psych Problems: No - HEMATOLOGY/ONCOLOGY Hx Hematology/Oncology Disorders: No Family Medical History Any Significant Family History?: Yes Hx Diabetes: Mother Hx Heart Disease: Father H&P Meds/Allergies - Allergies Allergies: Allergies Allergy/AdvReac Type Severity Reaction Status Date / Time No Known Allergies Allergy HYPERSENSIT Verified 01/12/18 17:03 IVITY - Home Medications Previous Rx's Medication Instructions Recorded Amoxicillin/Potassium Clav 1 tab PO BID #14 tab 10/14/17 [Augmentin 875-125 Tablet] - Active Medications Active Medications: Current Medications Amlodipine Besylate (Norvasc) 5 mg PO DAILY [facility] Last Admin: 01/13/18 09:38 Dose: 5 mg Hydromorphone HCl (Dilaudid) 0.5 mg IM Q4HR PRN PRN Reason: Abdominal Pain Last Admin: 01/13/18 09:45 Dose: 0.5 mg Nicotine (Nicotine 14mg) 1 patch TD DAILY [facility] Last Admin: 01/13/18 09:38 Dose: 1 patch Ondansetron HCl (Zofran) 4 mg IVP Q4H PRN PRN Reason: NAUSEA Physical Exam - Vital Signs Vital Signs: Vital Signs - Last 24 Hrs Temp Pulse Resp BP Pulse Ox 01/13/18 05:32 97.7 F 66 16 150/85 94 L 01/12/18 22:10 71 20 - General General Appearance: Alert, Oriented x3, Cooperative, Mild distress (due to AP.) Limitations: No limitations - Head Head exam: Atraumatic, Normocephalic, Normal inspection - Eye Eye exam: Normal appearance, PERRL - ENT Throat exam: Normal inspection. negative: Tonsillar erythema, Tonsillar exudate - Neck Neck exam: Normal inspection, Full ROM. negative: Tenderness - Respiratory Respiratory exam: Normal lung sounds bilaterally. negative: Respiratory distress - Cardiovascular Cardiovascular Exam: Regular rate, Normal rhythm, Normal heart sounds - GI/Abdominal GI/Abdominal exam: Guarding, Tenderness (There is significant tenderness in the mid abdomen.). negative: Soft, Distended - Rectal Rectal exam: Other (Refused rectal.) - Extremities Extremities exam: Normal inspection, Full ROM, Normal capillary refill. negative: Tenderness - Neurological Neurological exam: Alert. negative: Motor sensory deficit Results - Labs Result Diagrams: 01/13/18 06:15 01/13/18 06:15 Labs Last 24 Hours: Laboratory Results - last 24 hr 01/13/18 01/13/18 06:15 06:15 WBC 12.0 RBC 4.49 Hgb 14.8 Hct 44.2 MCV 98.4 H MCH 33.0 MCHC 33.5 RDW 13.6 Plt Count 176 MPV 9.5 Neutrophils % 89.0 H Lymphocytes % 3.7 L Monocytes % 8.8 Eosinophils % 0.1 Basophils % 0.1 Lymphocytes 3.0 L Monocytes 8.0 Toxic Granulation 1+ Platelet Estimate Normal RBC Morphology Normal Sodium 136 Potassium 4.1 Chloride 95 L Carbon Dioxide 31.0 H Anion Gap 10.0 BUN 12 Creatinine 0.5 L Estimated GFR > 60 Random Glucose 149 H Calcium 8.7 Total Bilirubin 0.40 AST 16 ALT 9 Alkaline Phosphatase 124 Total Protein 5.8 L Albumin 2.8 L Globulin 3.0 Albumin/Globulin Ratio 0.9 L Lipase 86 H VTE H&P Assessment - Risk for VTE Risk for VTE: Yes Risk Level: Moderate Risk Assessment Date: 01/13/18 Risk Assessment Time: 12:21 VTE Orders Placed or Will Be Placed: Yes Plan - Inpatient Certification Inpatient Certification: Admit to inpatient care: Based on my medical assessment, after consideration of patient's risk factors (age, co-morbidities and patient presenting symptoms and acuity), I expect that this patient will remain in the hospital greater than or equal to two midnights and that the services needed warrant inpatient care because: Patient Risk Factors: Pancreatitis Estimated length of stay: [] The patient may reasonably be expected to be discharged or transferred to a hospital within 96 hours after admission to [facility]. I certify that my determination is in accordance with my understanding of Medicare requirements for reasonable and necessary inpatient services. - Detailed Diagnosis and Plan (1) Pancreatitis Current Visit: Yes Status: Acute Qualifiers: Chronicity: acute Pancreatitis type: alcohol induced Acute pancreatitis complication: unspecified Qualified Code(s): K85.20 - Alcohol induced acute pancreatitis without necrosis or infection Base Code: K85.90 - ACUTE PANCREATITIS WITHOUT NECROSIS OR INFECTION, UNSP Comment: 3/4 - acute onset, nausea/vomting and abdominal pain. Etoh induced, pt admits to 1 pint ever daily. Multiple admissions to [facility] re[facility]. - CT abdomen/pelvis - evidence of acute pancreatitis with local inflammation. Lipase 80-->86 other labs WNL. - IV fluids continuosly, pain control with hydromorphone 0.5mg Q4H PRN Zofran 4mg IV Q4H PRN, clear liquids with advacement as tolerated. - repeat labs and cardiac monitoring (2) EtOH dependence Current Visit: Yes Status: Acute Base Code: F10.20 - ALCOHOL DEPENDENCE, UNCOMPLICATED Comment: 3/4 - drinks 1 pint of liquor daily, multiple rehab admissions. - last drink was 7 days ago, no signs of withdrawal. CIWA 0 - IVF and thiamine ordered. (3) Hypertension Current Visit: Yes Status: Acute Base Code: I10 - ESSENTIAL (PRIMARY) HYPERTENSION Comment: 3/ - patient on BP medications at home but not sure of name. - BP elevated since admission. - starting Norvasc 5mg daily, titrate up as needed. (4) Tobacco dependence due to cigarettes Current Visit: Yes Status: Acute Base Code: F17.210 - NICOTINE DEPENDENCE, CIGARETTES, UNCOMPLICATED Comment: 01/13 - 1 pk/daily x 30 years - nicotine patch ordered (5) Full code status Current Visit: Yes Status: Acute Base Code: Z78.9 - OTHER SPECIFIED HEALTH STATUS Comment: 01/13 - FULL CODE - Disposition Will need slow progression of diet and pain control over the next 48 hours.
[2018-01-13] MEDS ORDERED: THIAMINE HCL IV 100 MG in 0.9 % SODIUM CHLORIDE 1000ML 1,000 ML IV SCH (12:30)
[2018-01-13] MEDS ORDERED: HYDROMORPHONE HCL 1 MG/ML SYRINGE IVP PRN (23:40)
[2018-01-14] MEDS: HYDROMORPHONE HCL 2 MG/ML VIAL IVP PRN ×4 (05:56→23:12)
[2018-01-14 06:47] LABS: BASO % 0.1 % (0-6); EOS % 0.2 % (0-6); HEMATOCRIT 43.5 % (42.0-52.0); HEMOGLOBIN 14.8 gm/dl (14.0-18.0); LYMPH % 4.2 % (16-45); MEAN CELL VOLUME 96.9 fl (81-97); MEAN PLATELET VOLUME 9.5 fl (7.4-10.4); MONO % 6.3 % (0-9); PLATELET COUNT 204 K/uL (130-400); RED BLOOD COUNT 4.49 M/uL (4.40-5.70); RED CELL DISTRIBUTION WIDTH 13.4 % (11.5-14.5); WHITE BLOOD COUNT W/O DIFF 12.8 K/uL (4.2-12.2)
[2018-01-14 07:02] LABS: BLOOD UREA NITROGEN 9 mg/dL (6-20); CREATININE 0.4 mg/dL (0.7-1.2); EST GLOMERULAR FILTRATION RATE > 60 mL/min; GLUCOSE,RANDOM 237 mg/dL (74-109)
--- NOTE | 2018-01-14 07:39 | CT SCAN REPORT ---
EXAM: CT OF THE ABDOMEN AND PELVIS WITH CONTRAST HISTORY: BILATERAL LOWER ABDOMINAL PAIN. HEMATEMESIS FOR ONE WEEK. TECHNIQUE: Contrast enhanced helical CT examination of the abdomen and pelvis was performed with 100 ml of Omnipaque 300 utilized. Delayed images through the kidneys were also obtained. Oral contrast was not utilized per the ordering physician limiting evaluation of bowel. Comparison: CT of the abdomen without and with contrast and CT of the pelvis with contrast dated 11/15/10. FINDINGS: As demonstrated on the prior examination, there are several small nodules in the posterior lateral left lung base with the largest of these measuring 5 mm. Given differences in technique, they have not significantly changed in the interval and are consistent with post inflammatory nodules. There is a possible small nodule in the lateral segment of the right middle lobe demonstrated on the first image obtained measuring 3 mm. This area is not included on the prior examination. It is nonspecific, but also likely a benign post inflammatory nodule. The lung bases are otherwise clear and there is no pleural or pericardial effusion. The heart is not enlarged. No new focal abnormality demonstrated within the liver, spleen, adrenal glands nor right kidney. A tiny too small to characterize hypodense lesion in the posterior liver dome is identified and likely unchanged. This is likely a cyst. There is redemonstration of a small hypodense mass in the lateral left mid kidney. This now measures 10 mm while on the prior examination it measured 5 mm. There is also a small hypodense mass in the medial lower pole of the left kidney now measuring 9 mm in maximum diameter while on the prior examination it measured 6 mm. These are nonspecific, but likely cysts. The left kidney is otherwise unremarkable. The gallbladder is moderately distended though no cholelithiasis or gallbladder wall thickening is seen. No pericholecystic fluid identified. Mild diffuse hepatic steatosis is suspected. The pancreas is mildly prominent in size and there is mild to moderate peripancreatic fat stranding with a small amount of fluid noted within the left anterior perirenal space superiorly. These findings are consistent with acute pancreatitis. The portal vein and splenic vein are patent. There is no evidence of hemorrhage nor necrosis. No new intraabdominal nor retroperitoneal lymphadenopathy. Minor atherosclerosis diffusely without aneurysmal dilatation of the abdominal aorta nor iliac arteries. Evaluation of the lower pelvis is limited by beam hardening artifact from a left hip prosthesis. To the extent visualized, no intrinsic urinary bladder abnormality is visualized. No new pelvic mass, lymphadenopathy, or free pelvic fluid. There is moderate diverticulosis of the left colon most pronounced in the sigmoid region without evidence of diverticulitis. No gross bowel dilatation nor bowel wall thickening. Evaluation of the stomach is limited by lack of distention. A tiny fat filled umbilical hernia is again noted. The abdominal wall is otherwise intact. Evaluation of the iliac veins is limited by incomplete opacification. No new lytic or blastic bone lesion. There are mild to moderate degenerative changes scattered within the visualized spine most pronounced at the lower lumbar levels. The appendix is not visualized without confidence though no inflammatory changes are noted in its expected location. IMPRESSION: 1. FINDINGS CONSISTENT WITH ACUTE PANCREATITIS WITHOUT EVIDENCE OF COMPLICATING VENOUS THROMBOSIS, NECROSIS NOR HEMORRHAGE. 2. THERE ARE TWO, TOO SMALL TO CHARACTERIZE HYPODENSE LESIONS IN THE LEFT KIDNEY. THESE HAVE SLIGHTLY ENLARGED SINCE 2011. THEY ARE LIKELY CYSTS. 3. HEPATIC STEATOSIS. SINGLE TOO SMALL TO CHARACTERIZE HYPODENSE LESION IN THE POSTERIOR LIVER DOME IS GROSSLY STABLE, LIKELY A CYST OR HEMANGIOMA. 4. MODERATE DISTENTION OF THE GALLBLADDER WITHOUT CHOLELITHIASIS OR GALLBLADDER WALL THICKENING. NO BILIARY DUCTAL DILATATION. 5. COLONIC DIVERTICULOSIS WITHOUT EVIDENCE OF DIVERTICULITIS. 6. TOTAL LEFT HIP ARTHROPATHY CHANGES. JOB NUMBER: [id number] [facility]
[2018-01-14] MEDS ORDERED: POTASSIUM CHL 20MEQ IN 1L NS 20 MEQ/1,000 ML BAG IV ONE (08:08)
[2018-01-14] MEDS ORDERED: POTASSIUM CHLORIDE 20 MEQ/15ML CUP PO ONE (08:08)
--- NOTE | 2018-01-14 08:36 | Physician Progress Note ---
Subjective - Date Date of Physician Progress Note: 01/14/18 - Subjective Subjective Comment: Mr. Hernandez still complains of abdominal pain 07/22, tolerating a soft diet yesterday and last night. Patient appears weak and lethargic. Objective - Vital Signs Vital Signs: Vital Signs - Last 24 Hrs Temp Pulse Resp BP Pulse Ox 01/14/18 06:00 98.1 F 70 18 146/83 95 01/13/18 22:00 99.3 F 75 16 127/57 95 01/13/18 21:00 69 18 01/13/18 14:00 98 F 69 18 140/70 96 - General General Appearance: Alert, Oriented x3, Cooperative, Mild distress (due to AP.) Limitations: No limitations - Head Head exam: Atraumatic, Normocephalic, Normal inspection - Eye Eye exam: Normal appearance, PERRL - ENT Throat exam: Normal inspection. negative: Tonsillar erythema, Tonsillar exudate - Neck Neck exam: Normal inspection, Full ROM. negative: Tenderness - Respiratory Respiratory exam: Normal lung sounds bilaterally. negative: Respiratory distress - Cardiovascular Cardiovascular Exam: Regular rate, Normal rhythm, Normal heart sounds - GI/Abdominal GI/Abdominal exam: Guarding, Tenderness (There is significant tenderness in the mid abdomen.). negative: Soft, Distended - Rectal Rectal exam: Other (Refused rectal.) - Extremities Extremities exam: Normal inspection, Full ROM, Normal capillary refill. negative: Tenderness - Neurological Neurological exam: Alert. negative: Motor sensory deficit Assessment and Plan - Assessment and Plan (1) Pancreatitis Current Visit: Yes Status: Acute Qualifiers: Chronicity: acute Pancreatitis type: alcohol induced Acute pancreatitis complication: unspecified Qualified Code(s): K85.20 - Alcohol induced acute pancreatitis without necrosis or infection Base Code: K85.90 - ACUTE PANCREATITIS WITHOUT NECROSIS OR INFECTION, UNSP Comment: 01/14 - acute onset, nausea/vomting and abdominal pain. Etoh induced, pt admits to 1 pint liquor daily. Multiple admissions to [facility] rehab. - CT abdomen/pelvis - evidence of acute pancreatitis with local inflammation. Potassium 2.8, repleting K+ 40 meq PO and 20 meq IV. - IV fluids continuosly, pain control with hydromorphone 1mg Q4H PRN Zofran 4mg IV Q4H PRN, clear liquids with advacement as tolerated. - remains afebrile, no significant change in WBCs, cont cardiac monitoring (2) EtOH dependence Current Visit: Yes Status: Acute Base Code: F10.20 - ALCOHOL DEPENDENCE, UNCOMPLICATED Comment: 01/14 - drinks 1 pint of liquor daily, multiple rehab admissions. - last drink was 7 days ago, no signs of withdrawal. CIWA 0 - IVF and thiamine ordered. (3) Hypertension Current Visit: Yes Status: Acute Base Code: I10 - ESSENTIAL (PRIMARY) HYPERTENSION Comment: 01/14 - starting Norvasc 5mg daily, titrate up as needed. - on Diazyde as per [facility] note. (4) Tobacco dependence due to cigarettes Current Visit: Yes Status: Acute Base Code: F17.210 - NICOTINE DEPENDENCE, CIGARETTES, UNCOMPLICATED Comment: 01/14 - 1 pk/daily x 30 years, cough with white plegm this morning. If cont get chest xray in the am . - nicotine patch ordered (5) Full code status Current Visit: Yes Status: Acute Base Code: Z78.9 - OTHER SPECIFIED HEALTH STATUS Comment: 01/14 - FULL CODE - Disposition Disposition: Continue to advance diet as tolerated. Replete K, IV fluids and pain control. Results - Labs Result Diagrams: 01/14/18 06:36 01/14/18 06:36 Labs Last 24 Hours: Laboratory Results - last 24 hr 01/14/18 01/14/18 06:36 06:36 WBC 12.8 H RBC 4.49 Hgb 14.8 Hct 43.5 MCV 96.9 MCH 33.0 MCHC 34.0 RDW 13.4 Plt Count 204 MPV 9.5 Neutrophils % 89.0 H Band Neutrophils % 0.0 Lymphocytes % 4.2 L Monocytes % 6.3 Eosinophils % 0.2 Basophils % 0.1 Lymphocytes 5.0 L Monocytes 6.0 Basophils 0.0 Eosinophil Count 0.0 Sodium 134 L Potassium 2.8 L* Chloride 93 L Carbon Dioxide 27.0 Anion Gap 14.0 BUN 9 Creatinine 0.4 L Estimated GFR > 60 Random Glucose 237 H Calcium 8.8 DVT/PE Assessment - Risk for VTE Risk for VTE: No Risk Level: Moderate Risk Assessment Date: 01/13/18 Risk Assessment Time: 12:21 VTE Orders Placed or Will Be Placed: Yes - Active Medicaitons Current Medications: Current Medications Amlodipine Besylate (Norvasc) 5 mg PO DAILY [facility] Last Admin: 01/13/18 09:38 Dose: 5 mg Hydromorphone HCl (Dilaudid) 1 mg IVP Q4H PRN PRN Reason: Abdominal Pain Last Admin: 01/14/18 05:56 Dose: 1 mg Potassium Chloride/Sodium Chloride ( Potassium Chl 20meq/) 20 meq in 1,000 mls @ 100 mls/hr IV NOW ONE Stop: 01/14/18 18:07 Nicotine (Nicotine 14mg) 1 patch TD DAILY [facility] Last Admin: 01/13/18 09:38 Dose: 1 patch Ondansetron HCl (Zofran) 4 mg IVP Q4H PRN PRN Reason: NAUSEA AMI Plan - Labs Result Diagrams: 01/14/18 06:36 01/14/18 06:36
[2018-01-14] MEDS: PANTOPRAZOLE SODIUM IV 40 MG VIAL IVP SCH (08:47)
[2018-01-14] MEDS: NICOTINE14 MG/24 HOUR PATCH TD SCH (09:41)
[2018-01-14] MEDS: AMLODIPINE BESYLATE 5MG TAB PO SCH (09:41)
[2018-01-14] MEDS ORDERED: HYDROCODONE/APAP 5/325MG TABLET PO PRN (19:04)
[2018-01-15] MEDS: HYDROMORPHONE HCL 2 MG/ML VIAL IVP PRN ×5 (04:08→20:09)
[2018-01-15] MEDS: PANTOPRAZOLE SODIUM IV 40 MG VIAL IVP SCH (08:24)
[2018-01-15] MEDS: ONDANSETRON HCL IV 4 MG/2 ML VIAL IVP PRN (08:42)
[2018-01-15] MEDS: AMLODIPINE BESYLATE 5MG TAB PO SCH (10:39)
[2018-01-15] MEDS: NICOTINE14 MG/24 HOUR PATCH TD SCH (10:39)
--- NOTE | 2018-01-15 14:04 | Physician Progress Note ---
Subjective - Date Date of Physician Progress Note: 01/15/18 - Subjective Location: Right Radiation: Abdomen Severity scale (1-10): 9 Quality: Constant, Sharp Consistency: Constant Improves with: Medication Worsens with: Movement Associated symptoms: Loss of appetite, Weakness Objective - Vital Signs Vital Signs: Vital Signs - Last 24 Hrs Temp Pulse Resp BP BP Pulse Ox 01/15/18 08:33 24 01/15/18 06:00 97.9 F 56 L 16 149/79 95 01/14/18 22:00 98.5 F 66 16 149/80 97 01/14/18 21:00 66 16 01/14/18 14:00 98.9 F 69 20 129/76 96 - General General Appearance: Alert, Oriented x3, Cooperative, Mild distress (due to AP.) Limitations: No limitations - Head Head exam: Atraumatic, Normocephalic, Normal inspection - Eye Eye exam: Normal appearance, PERRL - ENT Throat exam: Normal inspection. negative: Tonsillar erythema, Tonsillar exudate - Neck Neck exam: Normal inspection, Full ROM. negative: Tenderness - Respiratory Respiratory exam: Normal lung sounds bilaterally. negative: Respiratory distress - Cardiovascular Cardiovascular Exam: Regular rate, Normal rhythm, Normal heart sounds - GI/Abdominal GI/Abdominal exam: Guarding, Tenderness (There is significant tenderness in the mid-right abdomen.). negative: Soft, Distended - Rectal Rectal exam: Other (Refused rectal.) - Extremities Extremities exam: Normal inspection, Full ROM, Normal capillary refill. negative: Tenderness - Neurological Neurological exam: Alert. negative: Motor sensory deficit - Other Other Exam Information: Mr. Hernandez still complains of abdominal pain 07/22, he has tolerated clear fluids this morning. Patient appears weak and lethargic Assessment and Plan - Assessment and Plan (1) Pancreatitis Current Visit: Yes Status: Acute Qualifiers: Chronicity: acute Pancreatitis type: alcohol induced Acute pancreatitis complication: unspecified Qualified Code(s): K85.20 - Alcohol induced acute pancreatitis without necrosis or infection Base Code: K85.90 - ACUTE PANCREATITIS WITHOUT NECROSIS OR INFECTION, UNSP Comment: 01/15/18: Acute onset, nausea/vomting and abdominal pain. Etoh induced , pt admits to 1 pint liquor daily. Multiple admissions to [facility] rehab. CT abdomen/pelvis - evidence of acute pancreatitis with local inflammation. Potassium was 2.8 yesterday and replaced iwth IV fluids, will recheck K+ this evening. Plan to continue IV fluids, pain control with hydromorphone 1mg Q4H PRN Zofran 4mg IV Q4H PRN, clear liquids with advacement as tolerated. Pt. remains afebrile, no significant change in WBCs, cont cardiac monitoring (2) EtOH dependence Current Visit: Yes Status: Acute Base Code: F10.20 - ALCOHOL DEPENDENCE, UNCOMPLICATED Comment: 01/15/18: - drinks 1 pint of liquor daily, multiple rehab admissions. - last drink was 7 days ago, no signs of withdrawal. CIWA 0 - IVF and thiamine ordered. (3) Hypertension Current Visit: Yes Status: Acute Base Code: I10 - ESSENTIAL (PRIMARY) HYPERTENSION Comment: 01/15/18: Norvasc 5mg daily. Pt. denies chest pain, palpitations, headache, vision change. (4) Tobacco dependence due to cigarettes Current Visit: Yes Status: Acute Base Code: F17.210 - NICOTINE DEPENDENCE, CIGARETTES, UNCOMPLICATED Comment: 01/15/18: 1 ppd for 30 years. Pt. denies cough today. Nicotine patch in use. (5) Full code status Current Visit: Yes Status: Acute Base Code: Z78.9 - OTHER SPECIFIED HEALTH STATUS Comment: 01/15/18: pt. remains full code status Results - Labs Result Diagrams: 01/14/18 06:36 01/14/18 06:36 DVT/PE Assessment - Risk for VTE Risk for VTE: No Risk Level: Moderate Risk Assessment Date: 01/13/18 Risk Assessment Time: 12:21 VTE Orders Placed or Will Be Placed: Yes - Active Medicaitons Current Medications: Current Medications Hydrocodone Bitart/Acetaminophen ([place] 5mg/325mg) 1 each PO Q6H PRN PRN Reason: Pain - General Last Admin: 01/14/18 19:09 Dose: 1 each Amlodipine Besylate (Norvasc) 5 mg PO DAILY [facility] Last Admin: 01/15/18 10:39 Dose: 5 mg Hydromorphone HCl (Dilaudid) 1 mg IVP Q4H PRN PRN Reason: Abdominal Pain Last Admin: 01/15/18 12:12 Dose: 1 mg Nicotine (Nicotine 14mg) 1 patch TD DAILY [facility] Last Admin: 01/15/18 10:39 Dose: 1 patch Ondansetron HCl (Zofran) 4 mg IVP Q4H PRN PRN Reason: NAUSEA Last Admin: 01/15/18 08:42 Dose: 4 mg Pantoprazole Sodium (Protonix Iv) 40 mg IVP Q24H [facility] Last Admin: 01/15/18 08:24 Dose: 40 mg AMI Plan - Labs Result Diagrams: 01/14/18 06:36 01/14/18 06:36
[2018-01-15 15:18] LABS: HEMATOCRIT 40.1 % (42.0-52.0); MEAN CELL VOLUME 95.7 fl (81-97); MEAN CORPUSCULAR HEMOGLOBIN 33.4 pg (27-33); MEAN CORPUSCULAR HGB CONC 34.9 g/dl (32-36); MEAN PLATELET VOLUME 9.5 fl (7.4-10.4); PLATELET COUNT 259 K/uL (130-400); RED BLOOD COUNT 4.19 M/uL (4.40-5.70); RED CELL DISTRIBUTION WIDTH 13.1 % (11.5-14.5); WHITE BLOOD COUNT W/O DIFF 12.5 K/uL (4.2-12.2)
[2018-01-15 15:22] LABS: ALB/GLOB RATIO 0.9 (1.1-1.8); ALBUMIN 2.7 g/dL (4.0-5.0); ALKALINE PHOSPHATASE 116 U/L (40-129); ALT/SGPT 99 U/L (<41); AST/SGOT 130 U/L (10.0-50.0); BLOOD UREA NITROGEN 9 mg/dL (6-20); CREATININE 0.4 mg/dL (0.7-1.2); EST GLOMERULAR FILTRATION RATE > 60 mL/min; GLUCOSE,RANDOM 146 mg/dL (74-109); TOTAL PROTEIN 5.6 g/dL (6.6-8.7)
[2018-01-16] MEDS: HYDROMORPHONE HCL 2 MG/ML VIAL IVP PRN ×3 (00:41→07:44)
[2018-01-16 07:21] LABS: HEMATOCRIT 41.7 % (42.0-52.0); HEMOGLOBIN 14.2 gm/dl (14.0-18.0); MEAN CELL VOLUME 95.4 fl (81-97); MEAN CORPUSCULAR HGB CONC 34.1 g/dl (32-36); MEAN PLATELET VOLUME 9.4 fl (7.4-10.4); PLATELET COUNT 294 K/uL (130-400); RED BLOOD COUNT 4.37 M/uL (4.40-5.70); RED CELL DISTRIBUTION WIDTH 12.9 % (11.5-14.5); WHITE BLOOD COUNT W/O DIFF 10.1 K/uL (4.2-12.2)
[2018-01-16 07:33] LABS: MEAN CORPUSCULAR HEMOGLOBIN 32.4 pg (27-33)
[2018-01-16 07:40] LABS: PLATELET ESTIMATE NORMAL (NORMAL)
[2018-01-16 07:45] LABS: ALB/GLOB RATIO 0.9 (1.1-1.8); ALBUMIN 2.6 g/dL (4.0-5.0); ALKALINE PHOSPHATASE 124 U/L (40-129); ALT/SGPT 135 U/L (<41); AST/SGOT 120 U/L (10.0-50.0); BLOOD UREA NITROGEN 7 mg/dL (6-20); CREATININE 0.4 mg/dL (0.7-1.2); EST GLOMERULAR FILTRATION RATE > 60 mL/min; GLUCOSE,RANDOM 149 mg/dL (74-109); TOTAL PROTEIN 5.5 g/dL (6.6-8.7)
[2018-01-16] MEDS: ONDANSETRON HCL IV 4 MG/2 ML VIAL IVP PRN (07:46)
[2018-01-16] MEDS ORDERED: POTASSIUM CHLORIDE 20 MEQ TABLET PO ONE (09:12)
[2018-01-16] MEDS ORDERED: POTASSIUM CHL 20MEQ IN 1L NS 20 MEQ/1,000 ML BAG IV ONE (09:14)
[2018-01-16] MEDS: NICOTINE14 MG/24 HOUR PATCH TD SCH (10:24)
[2018-01-16] MEDS: AMLODIPINE BESYLATE 5MG TAB PO SCH (10:25)
[2018-01-16] MEDS: PANTOPRAZOLE SODIUM IV 40 MG VIAL IVP SCH (10:29)
[2018-01-16] MEDS: OXYCODONE HCL/APAP 5MG/325MG TABLET PO PRN ×2 (11:47→16:12)
--- NOTE | 2018-01-16 14:02 | Discharge Summary ---
Providers Discharge Summary Date: 01/16/18 Date of admission: 01/12/18 21:35 Expected Date of Discharge: 01/16/18 Attending physician: PAULINO BRASWELL Physical Exam - Vital Signs Vital Signs: Vital Signs - Last 24 Hrs Temp Pulse Resp BP BP Pulse Ox 01/16/18 06:00 98.7 F 57 L 16 137/74 98 01/15/18 22:00 99.1 F 53 L 17 145/76 96 01/15/18 21:00 18 01/15/18 14:00 98.4 F 57 L 18 134/77 98 - General General Appearance: Alert, Oriented x3, Cooperative, Mild distress (due to AP.) Limitations: No limitations - Head Head exam: Atraumatic, Normocephalic, Normal inspection - Eye Eye exam: Normal appearance, PERRL - ENT Throat exam: Normal inspection. negative: Tonsillar erythema, Tonsillar exudate - Neck Neck exam: Normal inspection, Full ROM. negative: Tenderness - Respiratory Respiratory exam: Normal lung sounds bilaterally. negative: Respiratory distress - Cardiovascular Cardiovascular Exam: Regular rate, Normal rhythm, Normal heart sounds - GI/Abdominal GI/Abdominal exam: Tenderness (There is significant tenderness in the mid-right abdomen.). negative: Soft, Distended - Rectal Rectal exam: Other (Refused rectal.) - Extremities Extremities exam: Normal inspection, Full ROM, Normal capillary refill. negative: Tenderness - Neurological Neurological exam: Alert. negative: Motor sensory deficit Hospitalization - Hospitalization Admission Diagnosis: Pancreatitis - Problem List/Discharge Diagnosis (1) Pancreatitis Status: Acute Discharge Diagnosis: Chronicity: acute Pancreatitis type: alcohol induced Acute pancreatitis complication: unspecified Qualified Code(s): K85.20 - Alcohol induced acute pancreatitis without necrosis or infection Base Code: K85.90 - ACUTE PANCREATITIS WITHOUT NECROSIS OR INFECTION, UNSP Comment: 01/16/18: Acute onset, nausea/vomting and abdominal pain. Etoh induced , pt admits to 1 pint liquor daily. Multiple admissions to [facility]. Pt. admits to [facility] addiction. CT abdomen/pelvis - evidence of acute pancreatitis with local inflammation. Potassium was 2.7 today, replaced with 20 mEq in 1000ml IV and 40 mEq oral. Will recheck bmp prior to d/c this evening. (2) EtOH dependence Status: Acute Base Code: F10.20 - ALCOHOL DEPENDENCE, UNCOMPLICATED Comment : 01/16/18: - drinks 1 pint of liquor daily, multiple rehab admissions. - last drink was 7 days ago, no signs of withdrawal. CIWA 0 - IVF and thiamine ordered. - Pt. stated today that he had taken up to 30 Norcos daily. He states he bought them off the street. He states that he has tried rehab facilites in the past. Plan to d/c home with f/u at [facility] in [place] that has programs available for addiction and financial assistance. (3) Hypertension Status: Acute Base Code: I10 - ESSENTIAL (PRIMARY) HYPERTENSION Comment: 05/29: Norvasc 5mg daily. Pt. denies chest pain, palpitations, headache, vision change. (4) Tobacco dependence due to cigarettes Status: Acute Base Code: F17.210 - NICOTINE DEPENDENCE, CIGARETTES, UNCOMPLICATED Comment: 01/16/18: 1 ppd for 30 years. Pt. denies cough today. Nicotine patch in use. (5) Full code status Status: Acute Base Code: Z78.9 - OTHER SPECIFIED HEALTH STATUS Comment: 01/16: pt. remains full code status - Hospitalization Course Disposition: Home, Self-Care Hospital Course: Mr. Hernandez is a 57 y/o male who presents with acute onset abdominal pain, nausea and vomiting. The patient admits to drinking 1 liter of liqour daily for many years and has been in rehab on several occasions for his alcoholism. He reports that he has had pancreatitis several times in the past and was admitted to hospital in [place]. He does not have a primary care doctor but goes to [facility] for refill of his blood pressure medication which he cannot recall at this time. On admission to the ED the patient had a CT abdomen done which showed a localized area of pancreatic inflammation and not necrosis or fluid. Labs showed mild elevation in lipase but other labs were within normal limits. He was bolused 1 liter of normal saline and started on IV Dilaudid for pain control. 01/16/18: Pt. became more painful last evening. Spoke with Dr. Butler regarding pt's abdominal pain status and abdominal CT results (from 01/12). He read the CT and agreed that likely cause of acute pain is pancreatitis and not acute gallbladder disease. Will continue to advance diet as tolerated. Changed pain medication from IV dilaudid to percocet. 01/16/18: Pt. is tolerating percocet for pain. Discharge discussed with pt.- he is concerned about having enough pain medication to make it to his follow up to establish care with new PCP. We discussed developing a schedule and having his S.O. dispense his medication for him (because of his admitted narcotic addiction). He was agreeable to plan. Abnormal Labs: Abnormal Lab Results 01/13/18 01/13/18 01/14/18 Range/Units 06:15 06:15 06:36 WBC 12.8 H (4.2-12.2) K/uL RBC (4.40-5.70) M/uL Hct (42.0-52.0) % MCV 98.4 H (81-97) fl MCH (27-33) pg Neutrophils % 89.0 H 89.0 H (47-80) % Lymphocytes % 3.7 L 4.2 L (16-45) % Lymphocytes 3.0 L 5.0 L (16-45) % Sodium (136-145) mmol/L Potassium (3.4-4.5) mmol/L Chloride 95 L (98-107) mmol/L Carbon Dioxide 31.0 H (22-29) mmol/L Creatinine 0.5 L (0.7-1.2) mg/dL Random Glucose 149 H (74-109) mg/dL AST (10.0-50.0) U/L ALT (<41) U/L Total Protein 5.8 L (6.6-8.7) g/dL Albumin 2.8 L (4.0-5.0) g/dL Albumin/Globulin Ratio 0.9 L (1.1-1.8) Lipase 86 H (13-60) U/L 01/14/18 01/15/18 01/15/18 Range/Units 06:36 14:41 14:41 WBC 12.5 H (4.2-12.2) K/uL RBC 4.19 L (4.40-5.70) M/uL Hct 40.1 L (42.0-52.0) % MCV (81-97) fl MCH 33.4 H (27-33) pg Neutrophils % 83.0 H (47-80) % Lymphocytes % (16-45) % Lymphocytes 9.0 L (16-45) % Sodium 134 L 135 L (136-145) mmol/L Potassium 2.8 L* 3.1 L (3.4-4.5) mmol/L Chloride 93 L 95 L (98-107) mmol/L Carbon Dioxide 30.0 H (22-29) mmol/L Creatinine 0.4 L 0.4 L (0.7-1.2) mg/dL Random Glucose 237 H 146 H (74-109) mg/dL AST 130 H (10.0-50.0) U/L ALT 99 H (<41) U/L Total Protein 5.6 L (6.6-8.7) g/dL Albumin 2.7 L (4.0-5.0) g/dL Albumin/Globulin Ratio 0.9 L (1.1-1.8) Lipase (13-60) U/L 01/16/18 01/16/18 Range/Units 06:40 06:40 WBC (4.2-12.2) K/uL RBC 4.37 L (4.40-5.70) M/uL Hct 41.7 L (42.0-52.0) % MCV (81-97) fl MCH (27-33) pg Neutrophils % 83.0 H (47-80) % Lymphocytes % (16-45) % Lymphocytes 11.0 L (16-45) % Sodium 135 L (136-145) mmol/L Potassium 2.7 L* (3.4-4.5) mmol/L Chloride 96 L (98-107) mmol/L Carbon Dioxide (22-29) mmol/L Creatinine 0.4 L (0.7-1.2) mg/dL Random Glucose 149 H (74-109) mg/dL AST 120 H (10.0-50.0) U/L ALT 135 H (<41) U/L Total Protein 5.5 L (6.6-8.7) g/dL Albumin 2.6 L (4.0-5.0) g/dL Albumin/Globulin Ratio 0.9 L (1.1-1.8) Lipase (13-60) U/L Condition at Discharge: (2) Stable Discharge Diagnosis: Pancreatitis VTE Discharge VTE Reason For No Overlap Therapy: Not Indicated (mobility not impaired) Discharge Medications - Discharge Medications Prescriptions: Trazodone HCl [Desyrel] 50 mg PO QHS 14 Days #14 tab Amlodipine Besylate [Norvasc] 5 mg PO DAILY 30 Days #30 tab Oxycodone HCl/Acetaminophen [Percocet 5mg/325mg] 1 udtab PO Q4H PRN #56 tablet PRN Reason: Pain - Severe (8-10) Triamterene/Hydrochlorothiazid [Triamterene-Hctz 37.5-25 mg Tb] 1 tab PO QD 30 Days #30 tab Home Medications: Ambulatory Orders Amlodipine Besylate [Norvasc] 5 mg PO DAILY 30 Days #30 tab 01/16/18 [Last Taken Unknown] Oxycodone HCl/Acetaminophen [Percocet 5mg/325mg] 1 udtab PO Q4H PRN #56 tablet 01/16/18 [Last Taken Unknown] Trazodone HCl [Desyrel] 50 mg PO QHS 14 Days #14 tab 01/16/18 [Last Taken Unknown] Triamterene/Hydrochlorothiazid [Triamterene-Hctz 37.5-25 mg Tb] 1 tab PO QD 30 Days #30 tab 01/16/18 [Last Taken Unknown] Discharge Plan - Discharge Instructions Activity at Discharge: Increase Activity as Tolerated Diet at Discharge: Regular Diet Instructions: Pancreatitis (DC) Additional Instructions: We have scheduled an appointment at the [facility] in [place]. They will be your new primary care doctor and will work with you on financial assistance and insurance options. Please see Financial Services on the 1st floor before your appointment. Bring a copy of your taxes or most recent financial information. A Community Health Worker will see you during your appointment. She can help with resources for substance abuse. Appointment: Dr. Sulaiman JacksonJanuary 29 at 2:45PM Please get there about 45 minutes early (around 2:00) to meet with Financial Services and fill out your new patient paperwork [facility] is at [address] [place] [address] in [place]. Phone# is . You have been given a map with directions on how to get there from home. Quality Measures - Quality Measures Quality Measures: Documentation of Current Medications in Medical Record, Screening for High Blood Pressure and F/U Documented - Current Medications Quality Measure: Measure #130: Documentation of Current Medications Documentation of Current Medications: <Current Medications Documented/Reviewed> [G8427] - Blood Pressure Screening Quality Measure: Screening for High Blood Pressure and Follow-Up Documented Does Patient Have Any of the Following: Active Dx of HTN Blood Pressure Classification: Pre-Hypertensive BP Reading Systolic Measurement: 146 Diastolic Measurement: 83 Screening for High Blood Pressure: Patient Exclusion, Hx of HTN [G9744] - Elder Abuse Suspicion Index EASI Reference Information: Taylor HWANG, Jason C, Yolanda Holt, Kings Hurtado.Development and validation of a tool to assist physicians identification of elder abuse: The Elder Abuse Suspicion Index (EASI ). Journal of Elder Abuse and Neglect, 2008; 20 (3): 276-300.
[2018-01-16] MEDS ORDERED: TRAZODONE 50 MG TABLET PO SCH (22:00)
== END 2018-01-16 19:05 | disposition home or self-care (01) | DRG 440 ==
LOC: ER 16:37 → MEDSURG 21:35
PROVIDERS: ADMIT Internal Medicine; ATTEND Internal Medicine
DX: K85.20 Alcohol induced acute pancreatitis without necrosis or infection (principal); F10.20 Alcohol dependence, uncomplicated; I10 Essential (primary) hypertension; E78.5 Hyperlipidemia, unspecified; F17.210 Nicotine dependence, cigarettes, uncomplicated; Z87.19 Personal history of other diseases of the digestive system; Z78.9 Other specified health status
CPT/HCPCS: 74177; 80048; 80053; 80076; 80320; 83690; 85027; 96361; 96374; 96375; 96376; 99223; 99233; 99239; 99285; C9113; J2405; J3480; J7030

== ENCOUNTER 2018-03-22 17:05 | Observation (INO) | payer SELFPAY ==
[2018-03-22] MEDS ORDERED: 0.9 % SODIUM CHLORIDE 1,000 ML BAG IV ONE ×2 (18:23→18:25)
[2018-03-22] MEDS ORDERED: ONDANSETRON HCL IV 4 MG/2 ML VIAL IV ONE (18:23)
[2018-03-22] MEDS ORDERED: HYDROMORPHONE HCL 2 MG/ML VIAL IVP ONE ×2 (18:29→19:48)
--- NOTE | 2018-03-22 18:31 | Emergency Department Record ---
History of Present Illness - General Chief Complaint: Abdominal Pain Stated Complaint: ABD PAIN Time Seen by Provider: 03/22/18 18:20 Source: Patient Mode of Arrival: Ambulatory Limitations: No limitations - History of Present Illness Initial Comments: pt thinks he has another bout of pancreatitis. he has been drinking a lot in the last few weeks since his mother . he has a lot of pain and vomiting for days MD Complaint: Abdominal pain Onset/Timin -: Week(s) Location: Diffuse Radiation: None Migration to: No migration Severity: Severe Severity scale (1-10): 10 Quality: Sharp Consistency: Constant Improves With: Nothing Worsens With: Nothing Associated Symptoms: Nausea, Vomiting - Related Data Previous Rx's Medication Instructions Recorded Triamterene/Hydrochlorothiazid 1 tab PO QD 30 Days #30 tab 01/16/18 [Triamterene-Hctz 37.5-25 mg Tb] Allergies Allergy/AdvReac Type Severity Reaction Status Date / Time No Known Allergies Allergy HYPERSENSIT Verified 01/12/18 17:03 IVITY Travel Screening - Travel/Exposure Within Last 30 Days Have you traveled within the last 30 days?: No Review of Systems Reviewed: No additional complaints except as noted below Constitutional: Reports: As per HPI, Weakness. Denies: Chills, Fever, Malaise, Night sweats, Weight change Eyes: Reports: As per HPI. Denies: Eye discharge, Eye pain, Photophobia, Vision change ENT: Reports: As per HPI. Denies: Congestion, Dental pain, Ear pain, Epistaxis , Hearing loss, Throat pain Respiratory: Reports: As per HPI. Denies: Cough, Dyspnea, Hemoptysis, Stridor, Wheezes Cardiovascular: Reports: As per HPI. Denies: Arrhythmia, Chest pain, Dyspnea on exertion, Edema, Murmurs, Orthopnea, Palpitations, Paroxysmal nocturnal dyspnea, Rheumatic Fever, Syncope Endocrine: Reports: As per HPI. Denies: Fatigue, Heat or cold intolerance, Polydipsia, Polyuria Gastrointestinal: Reports: As per HPI, Abdominal pain, Nausea, Vomiting. Denies : Constipation, Diarrhea, Hematemesis, Hematochezia, Melena Genitourinary: Reports: As per HPI. Denies: Dysuria, Frequency, Hematuria, Incontinence, Retention, Testicular pain, Testicular mass, Urgency Musculoskeletal: Reports: As per HPI. Denies: Arthralgia, Back pain, Gout, Joint swelling, Myalgia, Neck pain Skin: Reports: As per HPI. Denies: Bruising, Change in color, Change in hair/ nails, Lesions, Pruritus, Rash Neurological: Reports: As per HPI. Denies: Abnormal gait, Confusion, Headache, Numbness, Paresthesias, Seizure, Tingling, Tremors, Vertigo, Weakness Psychiatric: Reports: As per HPI. Denies: Anxiety, Auditory hallucinations, Depression, Homicidal thoughts, Suicidal thoughts, Visual hallucinations Hematological/Lymphatic: Reports: As per HPI. Denies: Anemia, Blood Clots, Easy bleeding, Easy bruising, Swollen glands Past Medical History - SOCIAL HISTORY Smoking Status: Current every day smoker Alcohol Use: Heavy Drug Use: Occasional Drug Use Detail:: Opiates, Prescription drug abuse - RESPIRATORY Hx Respiratory Disorders: Yes Hx Asthma: Yes - CARDIOVASCULAR Hx Cardio Disorders: Yes Hx Hypertension: Yes Comment:: hyperlipidemia - NEURO Hx Neuro Disorders: No - GI Hx GI Disorders: Yes Hx Diverticulitis: Yes Hx Reflux: Yes - Hx Genitourinary Disorders: No - ENDOCRINE Hx Endocrine Disorders: No - MUSCULOSKELETAL Hx Musculoskeletal Disorders: No - PSYCH Hx Psych Problems: No - HEMATOLOGY/ONCOLOGY Hx Hematology/Oncology Disorders: No Family Medical History Any Significant Family History?: Yes Hx Diabetes: Mother Hx Heart Disease: Father Physical Exam - General General Appearance: Alert, Oriented x3, Cooperative, Mild distress - Head Head exam: Normal inspection - Eye Eye exam: Normal appearance, PERRL, EOMI Pupils: Normal accommodation - ENT ENT exam: Normal exam, Mucous membranes moist, Normal external ear exam, Normal orophraynx Ear exam: Normal external inspection. negative: External canal tenderness Nasal Exam: Normal inspection. negative: Discharge, Sinus tenderness Mouth exam: Normal external inspection, Tongue normal Teeth exam: Normal inspection. negative: Dental caries Throat exam: Normal inspection. negative: Tonsillar erythema, Tonsillar exudate - Neck Neck exam: Normal inspection, Full ROM. negative: Tenderness - Respiratory Respiratory exam: Normal lung sounds bilaterally. negative: Respiratory distress - Cardiovascular Cardiovascular Exam: Regular rate, Normal rhythm, Normal heart sounds - GI/Abdominal GI/Abdominal exam: Soft, Normal bowel sounds, Tenderness - Rectal Rectal exam: Deferred - exam: Deferred - Extremities Extremities exam: Normal inspection, Full ROM, Normal capillary refill. negative: Tenderness - Back Back exam: Reports: Normal inspection, Full ROM. Denies: Muscle spasm, Rash noted, Tenderness - Neurological Neurological exam: Alert, Normal gait, Oriented X3, Reflexes normal - Psychiatric Psychiatric exam: Normal affect, Normal mood - Skin Skin exam: Dry, Intact, Normal color, Warm Course Vital Signs 03/22/18 17:19 Temperature 97.7 F Pulse Rate 63 Respiratory 20 Rate Blood Pressure 189/109 Pulse Ox 99 - Reevaluation(s) Reevaluation #1: 03/22/18 19:25 care being turned over to dr mitchell Medical Decision Making - Lab Data Result diagrams: 03/22/18 18:51 03/22/18 18:51 Disposition Forms: Patient Portal Access Quality - Blood Pressure Screening Does Patient Have Any of the Following: No Blood Pressure Classification: Hypertensive Reading Systolic Measurement: 189 Diastolic Measurement: 109
[2018-03-22 18:52] LABS: BASO % 0.4 % (0-6); EOS % 0.3 % (0-6); GRAN % 79.9 % (47-80); HEMATOCRIT 46.7 % (42.0-52.0); HEMOGLOBIN 16.9 gm/dl (14.0-18.0); LYMPH % 12.2 % (16-45); MEAN CORPUSCULAR HEMOGLOBIN 32.9 pg (27-33); MEAN CORPUSCULAR HGB CONC 36.2 g/dl (32-36); MEAN PLATELET VOLUME 9.4 fl (7.4-10.4); MONO % 7.2 % (0-9); PLATELET COUNT 267 K/uL (130-400); RED BLOOD COUNT 5.13 M/uL (4.40-5.70); RED CELL DISTRIBUTION WIDTH 14.5 % (11.5-14.5); WHITE BLOOD COUNT W/O DIFF 12.4 K/uL (4.2-12.2)
[2018-03-22 19:01] LABS: BLOOD UREA NITROGEN 17 mg/dL (6-20); CREATININE 0.4 mg/dL (0.7-1.2); EST GLOMERULAR FILTRATION RATE > 60 mL/min
[2018-03-22 19:02] LABS: TOTAL PROTEIN 6.8 g/dL (6.6-8.7)
[2018-03-22 19:04] LABS: GLUCOSE,RANDOM 133 mg/dL (74-109)
[2018-03-22 19:06] LABS: ALT/SGPT 10 U/L (<41); BILIRUBIN,DIRECT 0.3 mg/dL (0-0.3)
[2018-03-22 19:07] LABS: ALBUMIN 3.5 g/dL (4.0-5.0); ALKALINE PHOSPHATASE 119 U/L (40-129); AST/SGOT 28 U/L (10.0-50.0); LIPASE 89 U/L (13-60)
[2018-03-22] MEDS ORDERED: SOD CHLOR 0.9% WITH KCL 40MEQ 40 MEQ/1,000 ML IV.SOLN IV ONE (19:18)
--- NOTE | 2018-03-22 20:42 | Emergency Department Record ---
History of Present Illness - General Chief Complaint: Abdominal Pain Stated Complaint: ABD PAIN Time Seen by Provider: 03/22/18 18:20 Source: Patient Mode of Arrival: Ambulatory Limitations: No limitations - History of Present Illness MD Complaint: Abdominal pain Onset/Timin -: Week(s) Location: Diffuse Radiation: None Migration to: No migration Severity: Severe Severity scale (1-10): 10 Quality: Sharp Consistency: Constant Improves With: Nothing Worsens With: Nothing Associated Symptoms: Nausea, Vomiting - Related Data Previous Rx's Medication Instructions Recorded Triamterene/Hydrochlorothiazid 1 tab PO QD 30 Days #30 tab 01/16/18 [Triamterene-Hctz 37.5-25 mg Tb] Allergies Allergy/AdvReac Type Severity Reaction Status Date / Time No Known Allergies Allergy HYPERSENSIT Verified 01/12/18 17:03 IVITY Travel Screening - Travel/Exposure Within Last 30 Days Have you traveled within the last 30 days?: No Review of Systems Constitutional: Reports: As per HPI, Weakness. Denies: Chills, Fever, Malaise, Night sweats, Weight change Eyes: Reports: As per HPI. Denies: Eye discharge, Eye pain, Photophobia, Vision change ENT: Reports: As per HPI. Denies: Congestion, Dental pain, Ear pain, Epistaxis , Hearing loss, Throat pain Respiratory: Reports: As per HPI. Denies: Cough, Dyspnea, Hemoptysis, Stridor, Wheezes Cardiovascular: Reports: As per HPI. Denies: Arrhythmia, Chest pain, Dyspnea on exertion, Edema, Murmurs, Orthopnea, Palpitations, Paroxysmal nocturnal dyspnea, Rheumatic Fever, Syncope Endocrine: Reports: As per HPI. Denies: Fatigue, Heat or cold intolerance, Polydipsia, Polyuria Gastrointestinal: Reports: As per HPI, Abdominal pain, Nausea, Vomiting. Denies : Constipation, Diarrhea, Hematemesis, Hematochezia, Melena Genitourinary: Reports: As per HPI. Denies: Dysuria, Frequency, Hematuria, Incontinence, Retention, Testicular pain, Testicular mass, Urgency Musculoskeletal: Reports: As per HPI. Denies: Arthralgia, Back pain, Gout, Joint swelling, Myalgia, Neck pain Skin: Reports: As per HPI. Denies: Bruising, Change in color, Change in hair/ nails, Lesions, Pruritus, Rash Neurological: Reports: As per HPI. Denies: Abnormal gait, Confusion, Headache, Numbness, Paresthesias, Seizure, Tingling, Tremors, Vertigo, Weakness Psychiatric: Reports: As per HPI. Denies: Anxiety, Auditory hallucinations, Depression, Homicidal thoughts, Suicidal thoughts, Visual hallucinations Hematological/Lymphatic: Reports: As per HPI. Denies: Anemia, Blood Clots, Easy bleeding, Easy bruising, Swollen glands Past Medical History - SOCIAL HISTORY Smoking Status: Current every day smoker Alcohol Use: Heavy Drug Use: Occasional Drug Use Detail:: Opiates, Prescription drug abuse - RESPIRATORY Hx Respiratory Disorders: Yes Hx Asthma: Yes - CARDIOVASCULAR Hx Cardio Disorders: Yes Hx Hypertension: Yes Comment:: hyperlipidemia - NEURO Hx Neuro Disorders: No - GI Hx GI Disorders: Yes Hx Diverticulitis: Yes Hx Reflux: Yes - Hx Genitourinary Disorders: No - ENDOCRINE Hx Endocrine Disorders: No - MUSCULOSKELETAL Hx Musculoskeletal Disorders: No - PSYCH Hx Psych Problems: No - HEMATOLOGY/ONCOLOGY Hx Hematology/Oncology Disorders: No Family Medical History Any Significant Family History?: Yes Hx Diabetes: Mother Hx Heart Disease: Father Physical Exam - General Limitations: No limitations Course Vital Signs 03/22/18 17:19 Temperature 97.7 F Pulse Rate 63 Respiratory 20 Rate Blood Pressure 189/109 Pulse Ox 99 - Reevaluation(s) Reevaluation #1: 03/22/18 20:42 Patient was assessed while awaiting CT imaging, denies any needs at this time. 1st bottle of contrast completed. Reevaluation #2: 03/22/18 21:29 CT Abdomen and Pelvis: Edema of the pancreas, not as severe as 01/27 imaging study Distended gallbladder, fatty infiltration liver Patient was updated on all results, will admit for IVFs and electrolyte correction. Patient is in agreement with the plan of care as discussed. Medical Decision Making - Lab Data Result diagrams: 03/22/18 18:51 03/22/18 18:51 Lab Results 03/22/18 03/22/18 Range/Units 18:51 18:51 WBC 12.4 H (4.2-12.2) K/uL RBC 5.13 (4.40-5.70) M/uL Hgb 16.9 (14.0-18.0) gm/dl Hct 46.7 (42.0-52.0) % MCV 91.0 (81-97) fl MCH 32.9 (27-33) pg MCHC 36.2 H (32-36) g/dl RDW 14.5 (11.5-14.5) % Plt Count 267 (130-400) K/uL MPV 9.4 (7.4-10.4) fl Gran % 79.9 (47-80) % Lymphocytes % 12.2 L (16-45) % Monocytes % 7.2 (0-9) % Eosinophils % 0.3 (0-6) % Basophils % 0.4 (0-6) % Sodium 131 L (136-145) mmol/L Potassium 3.3 L (3.4-4.5) mmol/L Chloride 85 L (98-107) mmol/L Carbon Dioxide 28.0 (22-29) mmol/L Anion Gap 18.0 H (7-16) BUN 17 (6-20) mg/dL Creatinine 0.4 L (0.7-1.2) mg/dL Estimated GFR > 60 mL/min Random Glucose 133 H (74-109) mg/dL Calcium 8.5 L (8.6-10.0) mg/dL Total Bilirubin 2.30 H (0.2-1.0) mg/dL Direct Bilirubin 0.3 (0-0.3) mg/dL AST 28 (10.0-50.0) U/L ALT 10 (<41) U/L Alkaline Phosphatase 119 (40-129) U/L Total Protein 6.8 (6.6-8.7) g/dL Albumin 3.5 L (4.0-5.0) g/dL Lipase 89 H (13-60) U/L Disposition Disposition: Admit Clinical Impression: Pancreatitis Qualifiers: Chronicity: acute Pancreatitis type: alcohol induced Acute pancreatitis complication: unspecified Qualified Code(s): K85.20 - Alcohol induced acute pancreatitis without necrosis or infection Nausea & vomiting Qualifiers: Vomiting type: unspecified Vomiting Intractability: intractable Qualified Code( s): R11.2 - Nausea with vomiting, unspecified EtOH dependence Qualifiers: Substance use status: unspecified alcohol-induced disorder Qualified Code(s): F10.29 - Alcohol dependence with unspecified alcohol-induced disorder Decision to Admit: Admit from ER Decision to Admit Date: 03/15/18 Decision to Admit Time: 21:31 Condition: (2) Stable Forms: Patient Portal Access Time of Disposition: 21:31 Quality - Quality Measures Quality Measures: N/A - Blood Pressure Screening Does Patient Have Any of the Following: No Blood Pressure Classification: Hypertensive Reading Systolic Measurement: 189 Diastolic Measurement: 109 Screening for High Blood Pressure: < First Hypertensive BP, F/U Documented > [ G8950] First Hypertensive Follow-up Interventions: Referral to alternative/primary care provider.
[2018-03-22] MEDS ORDERED: HYDROCHLOROTHIAZIDE PO SCH (22:18)
[2018-03-22] MEDS ORDERED: [UNRECOGNIZED DRUG - OTHER] PO SCH (22:18)
[2018-03-22] MEDS ORDERED: LORAZEPAM 2 MG/ML VIAL IV PRN (22:18)
[2018-03-22] MEDS ORDERED: TRIAMTERENE PO SCH (22:18)
[2018-03-22] MEDS: NICOTINE 21 MG/24 HOUR PATCH TD SCH (22:27)
[2018-03-22] MEDS: ONDANSETRON HCL IV 4 MG/2 ML VIAL IVP PRN (22:54)
[2018-03-23] MEDS: ONDANSETRON HCL IV 4 MG/2 ML VIAL IVP PRN ×3 (03:00→13:24)
[2018-03-23] MEDS: 0.9 % SODIUM CHLORIDE 1000ML 1,000 ML IV PRN ×2 (03:01→13:25)
[2018-03-23 03:34] LABS: URINE APPEARANCE CLEAR; URINE BILIRUBIN NEGATIVE (NEGATIVE); URINE BLOOD TRACE-I (NEGATIVE); URINE COLOR YELLOW; URINE GLUCOSE (UA) NEGATIVE (NEGATIVE); URINE KETONE NEGATIVE (NEGATIVE); URINE LEUKOCYTE ESTERASE NEGATIVE (NEGATIVE); URINE PROTEIN NEGATIVE (NEGATIVE); URINE UROBILINOGEN 0.2 E.U./dL (0.20 - 1.00)
[2018-03-23 03:41] LABS: URINE NITRITE NEGATIVE (NEGATIVE)
[2018-03-23 03:42] LABS: URINE RBC 0 - 2 (NONE SEEN); URINE WBC 0 - 2 (0-2/hpf)
[2018-03-23] MEDS ORDERED: PANTOPRAZOLE SODIUM 40 MG TABLET PO SCH (07:00)
--- NOTE | 2018-03-23 09:34 | History & Physical ---
History of Present Illness - Date of Service Date of Service for History & Physical: 03/23/18 - History of Present Illness Admitting Diagnosis: Pancreatitis. Nausea/Vomiting History of Present Illness: 57 yo male presents for pancreatitis r/t ETOH use. PMH ETOH abuse (1-1.5 pints per day), narcotic abuse (takes .5 oxycotin tablet daily), and chronic pancreatitis. Pt reports 1 month of sobriety but his mother recently and he went back to drinking 1-1.5 pints of hard liquor and continues to take 1/2 oxycotin tablet daily that he buys for "general pain". Pt has been to rehab several times but does not currently have insurance. 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 ER Pt presented to ER for abd pain, expressed concerns he was having another pancreatitis attack. Pt reports abd pain and vomiting for several days. Temp 97.7f, HR 63, RR 20, BP 189/109, 99RA, 10/[address] shows fluid around the pancreas (per audio clip, awaiting report), similar to 01/2018 episode but not as significant as then. Labs are not remarkable for severe pancreatitis, but clinically appears to be having chronic pancreatitis episode. WBC 12.4, Hbg 16.9, Hct 46.7, Plt 267 NA 131, K 3.3, Cl 85, CO2 28, BUN 17, creatinine .04, GFR >60, glucose 133, tot bili 2.3, direct bili 0.3, AST28/ALT10, alkphos 119, lipase 89 Pt given -1L NS bolus, 1L 40 mEq K in NS, 1mg dilaudid IVPx2, 4mg Zofran IVP, triamterenin/HCTZ -37.5/25 PO, and CIWA protocol started. 03/23/18 Pt in no acute distress but does report consitent abd pain. Has not been medicated since leaving ER. Pt was advanced to CLD by ER but changed to NPO except for meds r/t continued abd pain. Pt was medicated with Ativan for ETOH withdrawal symptoms last night but this AM is PWD, no tremors and a&ox4. Pt reports that he is not able to go to rehab r/t no insurance and is working and not sure if he would qualify for Medicaid. Pt also states, historically, he is more symptomatic with narcotic withdrawal than ETOH withdrawal. Last drink was , 72 hours ago. Pt remains on monitor, fall precautions and CIWA q4, vitals q8. Dilaudid ordered 0.5mg IVP q4 hours, continue zofran 4mg q4h. PCP none (uses [facility] for HTN rx refills) Travel Screening - Travel/Exposure Within Last 30 Days Have you traveled within the last 30 days?: No - Travel/Exposure Within Last Year Have you traveled outside the [place] in the last year?: No - Additonal Travel Details Have you been exposed to anyone with a communicable illness?: No - Travel Symptoms Symptom Screening: Vomiting Review of Systems Constitutional: Reports: As per HPI, Weakness. Denies: Chills, Fever, Malaise, Night sweats, Weight change Eyes: Reports: As per HPI. Denies: Eye discharge, Eye pain, Photophobia, Vision change ENT: Reports: As per HPI. Denies: Congestion, Dental pain, Ear pain, Epistaxis , Hearing loss, Throat pain Respiratory: Reports: As per HPI. Denies: Cough, Dyspnea, Hemoptysis, Stridor, Wheezes Cardiovascular: Reports: As per HPI. Denies: Arrhythmia, Chest pain, Dyspnea on exertion, Edema, Murmurs, Orthopnea, Palpitations, Paroxysmal nocturnal dyspnea, Rheumatic Fever, Syncope Endocrine: Reports: As per HPI. Denies: Fatigue, Heat or cold intolerance, Polydipsia, Polyuria Gastrointestinal: Reports: As per HPI, Abdominal pain, Nausea, Vomiting. Denies : Constipation, Diarrhea, Hematemesis, Hematochezia, Melena Genitourinary: Reports: As per HPI. Denies: Dysuria, Frequency, Hematuria, Incontinence, Retention, Testicular pain, Testicular mass, Urgency Musculoskeletal: Reports: As per HPI. Denies: Arthralgia, Back pain, Gout, Joint swelling, Myalgia, Neck pain Skin: Reports: As per HPI. Denies: Bruising, Change in color, Change in hair/ nails, Lesions, Pruritus, Rash Neurological: Reports: As per HPI. Denies: Abnormal gait, Confusion, Headache, Numbness, Paresthesias, Seizure, Tingling, Tremors, Vertigo, Weakness Psychiatric: Reports: As per HPI. Denies: Anxiety, Auditory hallucinations, Depression, Homicidal thoughts, Suicidal thoughts, Visual hallucinations Hematological/Lymphatic: Reports: As per HPI. Denies: Anemia, Blood Clots, Easy bleeding, Easy bruising, Swollen glands Past Medical History - SOCIAL HISTORY Smoking Status: Current every day smoker Alcohol Use: Heavy Alcohol Use Comment: PATIENT REPORTS-1.5 [place] DAILY X 4 WEEKS Drug Use Detail:: Opiates - RESPIRATORY Hx Respiratory Disorders: Yes Hx Asthma: Yes - CARDIOVASCULAR Hx Cardio Disorders: Yes Hx Hypertension: Yes Comment:: hyperlipidemia - NEURO Hx Neuro Disorders: No - GI Hx GI Disorders: Yes Hx Abdominal Pain: Yes Hx Diverticulitis: Yes Hx Reflux: Yes Hx Pancreatitis: Yes (LAST FLARE WAS EARLIER THIS YEAR) Hx Wt Loss/Wt Gain: Yes (WT. LOSS) - Hx Genitourinary Disorders: No - ENDOCRINE Hx Endocrine Disorders: No - MUSCULOSKELETAL Hx Musculoskeletal Disorders: Yes Hx Arthritis: Yes (PATIENT STATES IT IS RHEUMATOI) - PSYCH Hx Psych Problems: No - HEMATOLOGY/ONCOLOGY Hx Hematology/Oncology Disorders: No Family Medical History Any Significant Family History?: Yes Hx Diabetes: Mother Hx Heart Disease: Father H&P Meds/Allergies - Allergies Allergies: Allergies Allergy/AdvReac Type Severity Reaction Status Date / Time No Known Allergies Allergy HYPERSENSIT Verified 01/12/18 17:03 IVITY - Home Medications Previous Rx's Medication Instructions Recorded Triamterene/Hydrochlorothiazid 1 tab PO QD 30 Days #30 tab 01/16/18 [Triamterene-Hctz 37.5-25 mg Tb] - Active Medications Active Medications: Current Medications Hydromorphone HCl (Dilaudid) 0.5 mg IVP Q4H PRN PRN Reason: Abdominal Pain Sodium Chloride () 1,000 mls @ 100 mls/hr IV .Q10H PRN PRN Reason: LARGE VOLUME IV Last Admin: 03/23/18 03:01 Dose: 100 mls/hr Lorazepam (Ativan) 1 mg IV Q4H PRN PRN Reason: ANXIETY Last Admin: 03/22/18 23:02 Dose: 1 mg Nicotine (Nicotine 21mg) 1 patch TD DAILY [facility] Last Admin: 03/22/18 22:27 Dose: 1 patch Ondansetron HCl (Zofran) 4 mg IVP Q4H PRN PRN Reason: NAUSEA Last Admin: 03/23/18 07:00 Dose: 4 mg Pantoprazole Sodium (Protonix) 40 mg PO DAILYAC [facility] Last Admin: 03/23/18 07:00 Dose: 40 mg Triamterene/HCTZ (Dyazide) 1 udcap PO DAILY [facility] Physical Exam - Vital Signs Vital Signs: Vital Signs - Last 24 Hrs Temp Pulse Pulse Resp BP BP Pulse Ox 03/23/18 07:05 98.0 F 78 18 155/99 95 03/23/18 03:00 98.4 F 58 L 16 142/72 92 L 03/22/18 22:18 98.0 F 68 16 148/99 99 03/22/18 20:43 63 20 156/96 98 03/22/18 17:19 97.7 F 63 20 189/109 99 - General General Appearance: Alert, Oriented x3, Cooperative, No acute distress Limitations: No limitations - Head Head exam: Normal inspection - Eye Eye exam: Normal appearance, PERRL, EOMI Pupils: Normal accommodation - ENT ENT exam: Normal exam, Mucous membranes moist, Normal external ear exam, Normal orophraynx Ear exam: Normal external inspection. negative: External canal tenderness Nasal Exam: Normal inspection. negative: Discharge, Sinus tenderness Mouth exam: Normal external inspection, Tongue normal Teeth exam: Normal inspection. negative: Dental caries Throat exam: Normal inspection. negative: Tonsillar erythema, Tonsillar exudate - Neck Neck exam: Normal inspection, Full ROM. negative: Tenderness - Respiratory Respiratory exam: Decreased breath sounds, Other (productive cough). negative: Respiratory distress - Cardiovascular Cardiovascular Exam: Regular rate, Normal rhythm, Normal heart sounds Peripheral Pulses: 2+: Radial (R), Radial (L), Dorsalis Pedis (R), Dorsalis Pedis (L) - GI/Abdominal GI/Abdominal exam: Soft, Normal bowel sounds, Tenderness - Rectal Rectal exam: Deferred - exam: Deferred - Extremities Extremities exam: Normal inspection, Full ROM, Normal capillary refill. negative: Tenderness - Back Back exam: Reports: Normal inspection, Full ROM. Denies: Muscle spasm, Rash noted, Tenderness - Neurological Neurological exam: Alert, Normal gait, Oriented X3, Reflexes normal - Psychiatric Psychiatric exam: Normal affect, Normal mood - Skin Skin exam: Dry, Intact, Normal color, Warm Results - Labs Result Diagrams: 03/22/18 18:51 03/22/18 18:51 Labs Last 24 Hours: Laboratory Results - last 24 hr 03/22/18 03/22/18 03/22/18 03:10 18:51 18:51 WBC 12.4 H RBC 5.13 Hgb 16.9 Hct 46.7 MCV 91.0 MCH 32.9 MCHC 36.2 H RDW 14.5 Plt Count 267 MPV 9.4 Gran % 79.9 Lymphocytes % 12.2 L Monocytes % 7.2 Eosinophils % 0.3 Basophils % 0.4 Sodium 131 L Potassium 3.3 L Chloride 85 L Carbon Dioxide 28.0 Anion Gap 18.0 H BUN 17 Creatinine 0.4 L Estimated GFR > 60 Random Glucose 133 H Calcium 8.5 L Total Bilirubin 2.30 H Direct Bilirubin 0.3 AST 28 ALT 10 Alkaline Phosphatase 119 Total Protein 6.8 Albumin 3.5 L Lipase 89 H Urine Color Yellow Urine Appearance Clear Urine pH 7.0 Ur Specific [place] 1.010 Urine Protein Negative Urine Glucose (UA) Negative Urine Ketones Negative Urine Blood Trace-i Urine Nitrite Negative Urine Bilirubin Negative Urine Urobilinogen 0.2 Ur Leukocyte Esterase Negative Urine RBC 0 - 2 Urine WBC 0 - 2 - Imaging and Cardiology CT scan - abdomen Status: Report reviewed (audio clip reviewed) VTE H&P Assessment - Risk for VTE Risk for VTE: Yes Risk Level: Low Risk Assessment Date: 03/23/18 Risk Assessment Time: 09:40 VTE Orders Placed or Will Be Placed: No VTE Reason for No Prophylaxis: Not Indicated ([place] risk scale ) Plan - Detailed Diagnosis and Plan (1) EtOH dependence Current Visit: Yes Status: Chronic Qualifiers: Substance use status: unspecified alcohol-induced disorder Qualified Code(s ): F10.29 - Alcohol dependence with unspecified alcohol-induced disorder Base Code: F10.20 - ALCOHOL DEPENDENCE, UNCOMPLICATED Comment: 03/22/18 -drinks 1-1.5 pints daily, multiple rehab admissions -last drink 3 days ago, CIWA score low, one administration Ativan -CIWA q4 hrs, vitals q8, tailor's aide -IVF -Pt is not open to rehab this admission (2) Nausea & vomiting Current Visit: Yes Status: Acute Qualifiers: Vomiting type: unspecified Vomiting Intractability: intractable Qualified Code(s): R11.2 - Nausea with vomiting, unspecified Base Code: R11.2 - NAUSEA WITH VOMITING, UNSPECIFIED Comment: 03/22/18 -NPO -IVF NS @100 -Zofran 4mg IVP q4h (3) Pancreatitis Current Visit: Yes Status: Acute Qualifiers: Chronicity: acute Pancreatitis type: alcohol induced Acute pancreatitis complication: unspecified Qualified Code(s): K85.20 - Alcohol induced acute pancreatitis without necrosis or infection Base Code: K85.90 - ACUTE PANCREATITIS WITHOUT NECROSIS OR INFECTION, UNSP Comment: 03/22/18 -Labs elevated but not significantly -ABD ct shows fluid around pancreas -NPO, IVF, dilaudid 0.5mg IVP q4 hr, zofran 4mg IVP q4h -repeat labs in AM (4) Hypertension Current Visit: No Status: Acute Base Code: I10 - ESSENTIAL (PRIMARY) HYPERTENSION Comment: 03/22/18 -pt returned to home HTN meds, triamterene.HCTZ 37.5/12.5 -vitals q8hrs -Dilaudid 0.5mg IVP q4h PRN pain, should assist with BP control as pain report -will add Norvasc 5mg if needed after pain control (5) Tobacco dependence due to cigarettes Current Visit: No Status: Acute Base Code: F17.210 - NICOTINE DEPENDENCE, CIGARETTES, UNCOMPLICATED Comment: 03/22/18 -1 ppd for 30 years -Nicotine patch in use -productive cough for several days, no fever, WBC elevated, CXR ordered, awaiting results r/o PNA -Zpak PO started, probable bronchtitis (6) Full code status Current Visit: No Status: Acute Base Code: Z78.9 - OTHER SPECIFIED HEALTH STATUS Comment: 03/22/18 pt. remains full code status
[2018-03-23] MEDS ORDERED: AZITHROMYCIN 500 MG TABLET PO ONE (09:35)
[2018-03-23] MEDS: HYDROMORPHONE HCL 2 MG/ML VIAL IVP PRN ×2 (09:56→13:26)
[2018-03-23] MEDS: NICOTINE 21 MG/24 HOUR PATCH TD SCH (09:57)
[2018-03-23] MEDS ORDERED: TRIAMTERENE 37.5/HCTZ 25 CAPSULE PO SCH (10:00)
[2018-03-23] MEDS ORDERED: ALBUTEROL HFA 8 GM INHALER INH SCH (11:00)
--- NOTE | 2018-03-23 15:51 | Discharge Summary ---
Providers Discharge Summary Date: 03/23/18 Date of admission: 03/22/18 22:02 Expected Date of Discharge: 03/24/18 Attending physician: PAULINO BRASWELL Primary care physician: none Physical Exam - Vital Signs Vital Signs: Vital Signs - Last 24 Hrs Temp Pulse Pulse Resp BP BP Pulse Ox 03/23/18 10:55 98 F 155/99 03/23/18 10:45 60 16 03/23/18 09:00 18 03/23/18 07:05 98.0 F 78 18 155/99 95 03/23/18 03:00 98.4 F 58 L 16 142/72 92 L 03/22/18 22:18 98.0 F 68 16 148/99 99 03/22/18 20:43 63 20 156/96 98 03/22/18 17:19 97.7 F 63 20 189/109 99 - General General Appearance: Alert, Oriented x3, Cooperative, No acute distress Limitations: No limitations - Head Head exam: Normal inspection - Eye Eye exam: Normal appearance, PERRL, EOMI Pupils: Normal accommodation - ENT ENT exam: Normal exam, Mucous membranes moist, Normal external ear exam, Normal orophraynx Ear exam: Normal external inspection. negative: External canal tenderness Nasal Exam: Normal inspection. negative: Discharge, Sinus tenderness Mouth exam: Normal external inspection, Tongue normal Teeth exam: Normal inspection. negative: Dental caries Throat exam: Normal inspection. negative: Tonsillar erythema, Tonsillar exudate - Neck Neck exam: Normal inspection, Full ROM. negative: Tenderness - Respiratory Respiratory exam: Decreased breath sounds, Other (productive cough). negative: Respiratory distress - Cardiovascular Cardiovascular Exam: Regular rate, Normal rhythm, Normal heart sounds Peripheral Pulses: 2+: Radial (R), Radial (L), Dorsalis Pedis (R), Dorsalis Pedis (L) - GI/Abdominal GI/Abdominal exam: Soft, Normal bowel sounds, Tenderness - Rectal Rectal exam: Deferred - exam: Deferred - Extremities Extremities exam: Normal inspection, Full ROM, Normal capillary refill. negative: Tenderness - Back Back exam: Reports: Normal inspection, Full ROM. Denies: Muscle spasm, Rash noted, Tenderness - Neurological Neurological exam: Alert, Normal gait, Oriented X3, Reflexes normal - Psychiatric Psychiatric exam: Normal affect, Normal mood - Skin Skin exam: Dry, Intact, Normal color, Warm Hospitalization - Hospitalization Admission Diagnosis: Pancreatitis. Nausea/Vomiting - Problem List/Discharge Diagnosis (1) EtOH dependence Current Visit: Yes Status: Chronic Discharge Diagnosis: Substance use status: unspecified alcohol-induced disorder Qualified Code(s ): F10.29 - Alcohol dependence with unspecified alcohol-induced disorder Base Code: F10.20 - ALCOHOL DEPENDENCE, UNCOMPLICATED Comment: UPDATE- pt ETOH withdrawal was being appropriately treated but pt leave AMA/eloped, pulled out his IV. Was not in distress this AM or at time of depart per RN 03/22/18 -drinks 1-1.5 pints daily, multiple rehab admissions -last drink 3 days ago, CIWA score low, one administration Ativan -CIWA q4 hrs, vitals q8, security monitor -IVF -Pt is not open to rehab this admission (2) Nausea & vomiting Current Visit: Yes Status: Acute Discharge Diagnosis: Vomiting type: unspecified Vomiting Intractability: intractable Qualified Code(s): R11.2 - Nausea with vomiting, unspecified Base Code: R11.2 - NAUSEA WITH VOMITING, UNSPECIFIED Comment: 03/22/18 -NPO -IVF NS @100 -Zofran 4mg IVP q4h (3) Pancreatitis Current Visit: Yes Status: Acute Discharge Diagnosis: Chronicity: acute Pancreatitis type: alcohol induced Acute pancreatitis complication: unspecified Qualified Code(s): K85.20 - Alcohol induced acute pancreatitis without necrosis or infection Base Code: K85.90 - ACUTE PANCREATITIS WITHOUT NECROSIS OR INFECTION, UNSP Comment: UPDATE- pt leaving AMA/eloping without signing AMA paperwork, pulled out IV, dressed and walked out 03/23/18 -Labs elevated but not significantly -ABD ct shows fluid around pancreas -NPO, IVF, dilaudid 0.5mg IVP q4 hr, zofran 4mg IVP q4h -repeat labs in AM (4) Hypertension Current Visit: No Status: Acute Base Code: I10 - ESSENTIAL (PRIMARY) HYPERTENSION Comment: 03/23/18 -pt returned to home HTN meds, triamterene.HCTZ 37.5/12.5 -vitals q8hrs -Dilaudid 0.5mg IVP q4h PRN pain, should assist with BP control as pain report -will add Norvasc 5mg if needed after pain control (5) Tobacco dependence due to cigarettes Current Visit: No Status: Acute Base Code: F17.210 - NICOTINE DEPENDENCE, CIGARETTES, UNCOMPLICATED Comment: 03/23/18 -1 ppd for 30 years -Nicotine patch in use -productive cough for several days, no fever, WBC elevated, CXR ordered, awaiting results r/o PNA -Zpak PO started, probable bronchtitis (6) Full code status Current Visit: No Status: Acute Base Code: Z78.9 - OTHER SPECIFIED HEALTH STATUS Comment: 03/22/18 pt. remains full code status - Disposition Pt is leaving AMA/Eloping. RN notified this provider that pt had pulled out his IV and was dressing to leave. While on the phone with staff, RN is heard instructing pt that the risk of further injury or is possible for pancreatitis. Pt refused to sign AMA paper work at that time. RN updated this provider that pt is pink, warm and dry , ambulating with steady gait and did not appear in distress. Per RN report, pt was upset about NPO status as he was having continued abd pain , pt demanding diet advancement. Pt advanced to [facility]D and had continued abd pain and nausea. Became upset that he was not able to advance his diet further to solid food. It is this provider's understanding that at this time pt began preparing to leave inpt on his own accord. While assessing this pt this AM, pt was updated on POC for NPO, pain and nausea medications, repeat labs in AM and potential further advancement of diet from CLD to regular diet. Pt agreed with this POC, stated he had to call his GF to update the plan and she would be out of work by 3pm. - Hospitalization Course Disposition: Against Medical Advice Hospital Course: 57 yo male presents for pancreatitis r/t ETOH use. PMH ETOH abuse (1-1.5 pints per day), narcotic abuse (takes .5 oxycotin tablet daily), and chronic pancreatitis. Pt reports 1 month of sobriety but his mother recently and he went back to drinking 1-1.5 pints of hard liquor and continues to take 1/2 oxycotin tablet daily that he buys for "general pain". Pt has been to rehab several times but does not currently have insurance. 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 ER Pt presented to ER for abd pain, expressed concerns he was having another pancreatitis attack. Pt reports abd pain and vomiting for several days. Temp 97.7f, HR 63, RR 20, BP 189/109, 99RA, 10/[address] shows fluid around the pancreas (per audio clip, awaiting report), similar to 01/2018 episode but not as significant as then. Labs are not remarkable for severe pancreatitis, but clinically appears to be having chronic pancreatitis episode. WBC 12.4, Hbg 16.9, Hct 46.7, Plt 267 NA 131, K 3.3, Cl 85, CO2 28, BUN 17, creatinine .04, GFR >60, glucose 133, tot bili 2.3, direct bili 0.3, AST28/ALT10, alkphos 119, lipase 89 Pt given -1L NS bolus, 1L 40 mEq K in NS, 1mg dilaudid IVPx2, 4mg Zofran IVP, triamterenin/HCTZ -37.5/25 PO, and CIWA protocol started. 03/23/18 Pt in no acute distress but does report consitent abd pain. Has not been medicated since leaving ER. Pt was advanced to [facility]D by ER but changed to NPO except for meds r/t continued abd pain. Pt was medicated with Ativan for ETOH withdrawal symptoms last night but this AM is PWD, no tremors and a&ox4. Pt reports that he is not able to go to rehab r/t no insurance and is working and not sure if he would qualify for Medicaid. Pt also states, historically, he is more symptomatic with narcotic withdrawal than ETOH withdrawal. Last drink was , 72 hours ago. Pt remains on monitor, fall precautions and CIWA q4, vitals q8. Dilaudid ordered 0.5mg IVP q4 hours, continue zofran 4mg q4h. PCP none (uses [facility] for HTN rx refills) Procedures: Imaging and X-Rays 03/22/18 19:16 ABDOMEN/PELVIS W CONTRAST [CT] Stat 03/23/18 09:09 CHEST 2 VIEWS [RAD] Stat Cardiology Procedures 03/23/18 06:57 Missile Technician .Continuous Abnormal Labs: Abnormal Lab Results 03/22/18 03/22/18 Range/Units 18:51 18:51 WBC 12.4 H (4.2-12.2) K/uL MCHC 36.2 H (32-36) g/dl Lymphocytes % 12.2 L (16-45) % Sodium 131 L (136-145) mmol/L Potassium 3.3 L (3.4-4.5) mmol/L Chloride 85 L (98-107) mmol/L Anion Gap 18.0 H (7-16) Creatinine 0.4 L (0.7-1.2) mg/dL Random Glucose 133 H (74-109) mg/dL Calcium 8.5 L (8.6-10.0) mg/dL Total Bilirubin 2.30 H (0.2-1.0) mg/dL Albumin 3.5 L (4.0-5.0) g/dL Lipase 89 H (13-60) U/L Condition at Discharge: (2) Stable Discharge Diagnosis: pancreatitis Discharge Medications - Discharge Medications Home Medications: Ambulatory Orders Triamterene/Hydrochlorothiazid [Triamterene-Hctz 37.5-25 mg Tb] 1 tab PO QD 30 Days #30 tab 01/16/18 [Last Taken 03/22/18 09:00 37.5/25 mg] Discharge Plan - Discharge Instructions Diet at Discharge: Other (i have recommeded NPO but was advancing to CLD per pt insistance) Additional Instructions: You are leaving against medical advice. The risk of further injury or has been explained to you as you leave the facility on your own accord. Please seek medical attention for any worsening of symptoms. Please reconsider going back to rehab to address your alcohol and narcotic abuse. Quality Measures - Quality Measures Quality Measures: Documentation of Current Medications in Medical Record, Screening for High Blood Pressure and F/U Documented - Current Medications Quality Measure: Measure #130: Documentation of Current Medications Documentation of Current Medications: <Current Medications Documented/Reviewed> [G8427] - Blood Pressure Screening Quality Measure: Screening for High Blood Pressure and Follow-Up Documented Does Patient Have Any of the Following: Active Dx of HTN Blood Pressure Classification: Hypertensive Reading Systolic Measurement: 155 Diastolic Measurement: 99 Screening for High Blood Pressure: Patient Exclusion, Hx of HTN [G9744] - Elder Abuse Suspicion Index EASI Reference Information: Taylor HWANG, Jason C, Yolanda D, Kings Hurtado.Development and validation of a tool to assist physicians identification of elder abuse: The Elder Abuse Suspicion Index (EASI ). Journal of Elder Abuse and Neglect, 2008; 20 (3): 276-300.
[2018-03-23] MEDS ORDERED: NICOTINE 21 MG/24 HOUR PATCH TD SCH (22:00)
--- NOTE | 2018-03-24 00:32 | CT SCAN REPORT ---
EXAM: CT SCAN ABDOMEN/PELVIS W CONTRAST HISTORY: ABDOMINAL PAIN. TECHNIQUE: Sequential axial images were obtained from the diaphragms through the ischiorectal fossa after the intravenous administration of 100 mL of Omnipaque-300 contrast material. COMPARISON: 01/12/2018. FINDINGS: The visualized lung bases appear normal. The liver appears fatty- infiltrated. There is mild distention of the gallbladder. No gallstones or ductal dilatation. There is mild peripancreatic inflammatory change. The adrenal glands and kidneys appear normal. There is a small benign cyst in the left kidney. The spleen appears normal. The small bowel appears normal. There is colonic diverticulosis. No evidence of diverticulitis. The osseous structures are normal. IMPRESSION: 1. COLONIC DIVERTICULOSIS. NO EVIDENCE OF DIVERTICULITIS. 2. MILD EDEMA OF THE PANCREAS. THIS MAY REPRESENT EARLY PANCREATITIS. 3. FATTY INFILTRATION OF THE LIVER. JOB NUMBER: [id number] MTDD
--- NOTE | 2018-03-24 00:40 | RADIOLOGY REPORT ---
EXAM: CHEST 2 VIEWS HISTORY: PATIENT HAS PRODUCTIVE COUGH. TECHNIQUE: Two views of the chest are provided along with a comparison study dated 10/14/2017. FINDINGS: The cardiomediastinal silhouette is within normal limits for size and contour. Jackie appear unremarkable. There is no radiographic evidence of a focal infiltrate or pleural effusion or pneumothorax. IMPRESSION: STABLE RADIOGRAPHIC APPEARANCE OF THE CHEST WITH RESPECT TO THE PRIOR EXAMINATION. JOB NUMBER: [id number] MTDD
[2018-03-24] MEDS ORDERED: AZITHROMYCIN 250 MG TABLET PO SCH (10:00)
== END 2018-03-23 15:40 | disposition left against medical advice (07) ==
LOC: ER 17:05 → MEDSURG 22:02
PROVIDERS: ADMIT Internal Medicine; ATTEND Internal Medicine
DX: K85.20 Alcohol induced acute pancreatitis without necrosis or infection (principal); R11.2 Nausea with vomiting, unspecified; F10.29 Alcohol dependence with unspecified alcohol-induced disorder; F11.10 Opioid abuse, uncomplicated; I10 Essential (primary) hypertension; E78.5 Hyperlipidemia, unspecified; J45.909 Unspecified asthma, uncomplicated; F17.210 Nicotine dependence, cigarettes, uncomplicated
CPT/HCPCS: 71046; 74177; 80048; 80076; 81001; 83690; 85025; 94640; 96361; 96365; 96366; 96375; 96376; 99220; 99285; J2405; J7030

== ENCOUNTER 2018-03-26 17:53 | Emergency (ER) | payer SELFPAY ==
[2018-03-26] MEDS ORDERED: KETOROLAC 30 MG/ML VIAL IVP ONE (18:33)
[2018-03-26] MEDS ORDERED: ONDANSETRON HCL IV 4 MG/2 ML VIAL IVP ONE (18:33)
--- NOTE | 2018-03-26 18:35 | Emergency Department Record ---
History of Present Illness - General Chief Complaint: Abdominal Pain Stated Complaint: ABDOMINAL PAIN Time Seen by Provider: 03/26/18 18:32 Source: Patient Mode of Arrival: EMS Limitations: No limitations - History of Present Illness Initial Comments: 57 yo male returns to ED for evaluation of continued abdominal pain symptoms following recent admission for acute on chronic pancreatitis. Patient left the hospital AMA 3 days ago for similar symptoms as he was not allowed to eat that time. Patient also reports that he drank 1/2 pint of alcohol yesterday as well. Patient reports that he has not used any narcotics in 1 week. Patient denies fevers, chills, or recent illness. MD Complaint: Abdominal pain Onset/Timin -: Days(s) Location: Diffuse Radiation: None Severity: Severe Severity scale (1-10): 10 Quality: Sharp Improves With: Nothing Worsens With: Nothing Associated Symptoms: Nausea, Vomiting - Related Data Previous Rx's Medication Instructions Recorded Triamterene/Hydrochlorothiazid 1 tab PO QD 30 Days #30 tab 01/16/18 [Triamterene-Hctz 37.5-25 mg Tb] Naproxen [Naprosyn] 500 mg PO Q12H #30 tab. 03/26/18 Ondansetron [Zofran Odt] 4 mg PO Q8H PRN #15 tab.raudel 03/26/18 Allergies Allergy/AdvReac Type Severity Reaction Status Date / Time No Known Allergies Allergy HYPERSENSIT Verified 01/12/18 17:03 IVITY Travel Screening - Travel/Exposure Within Last 30 Days Have you traveled within the last 30 days?: No Review of Systems Constitutional: Denies: Chills, Fever, Malaise, Night sweats Eyes: Denies: Eye discharge, Eye pain ENT: Denies: Congestion, Ear pain, Epistaxis Respiratory: Denies: Cough, Dyspnea Cardiovascular: Denies: Chest pain, Dyspnea on exertion Endocrine: Denies: Fatigue, Heat or cold intolerance Gastrointestinal: Reports: Abdominal pain, Nausea, Vomiting. Denies: Constipation Genitourinary: Denies: Incontinence, Retention Musculoskeletal: Denies: Arthralgia, Back pain Skin: Denies: Bruising, Change in color Neurological: Denies: Abnormal gait, Confusion, Headache Psychiatric: Denies: Anxiety Hematological/Lymphatic: Denies: Anemia, Blood Clots Past Medical History - SOCIAL HISTORY Smoking Status: Current every day smoker Alcohol Use: Heavy Drug Use Detail:: Opiates - RESPIRATORY Hx Respiratory Disorders: Yes Hx Asthma: Yes - CARDIOVASCULAR Hx Cardio Disorders: Yes Hx Hypertension: Yes Comment:: hyperlipidemia - NEURO Hx Neuro Disorders: No - GI Hx GI Disorders: Yes Hx Abdominal Pain: Yes Hx Diverticulitis: Yes Hx Reflux: Yes Hx Pancreatitis: Yes (LAST FLARE WAS EARLIER THIS YEAR) Hx Wt Loss/Wt Gain: Yes (WT. LOSS) - Hx Genitourinary Disorders: No - ENDOCRINE Hx Endocrine Disorders: No - MUSCULOSKELETAL Hx Musculoskeletal Disorders: Yes Hx Arthritis: Yes (PATIENT STATES IT IS RHEUMATOI) - PSYCH Hx Psych Problems: No - HEMATOLOGY/ONCOLOGY Hx Hematology/Oncology Disorders: No Family Medical History Any Significant Family History?: Yes Hx Diabetes: Mother Hx Heart Disease: Father Physical Exam - General General Appearance: Alert, Oriented x3, Cooperative, Moderate distress Limitations: No limitations - Head Head exam: Atraumatic, Normocephalic, Normal inspection Head exam detail: negative: Abrasion, Contusion, Villeda's sign, General tenderness, Hematoma, Laceration - Eye Eye exam: Normal appearance. negative: Conjunctival injection, Periorbital swelling, Periorbital tenderness, Scleral icterus - ENT Ear exam: negative: Auricular hematoma, Auricular trauma Nasal Exam: negative: Active bleeding, Discharge, Dried blood, Foreign body Mouth exam: negative: Drooling, Laceration, Muffled voice, Tongue elevation - Neck Neck exam: Normal inspection. negative: Meningismus, Tenderness - Respiratory Respiratory exam: Normal lung sounds bilaterally. negative: Respiratory distress, Rhonchi, Stridor, Wheezes - Cardiovascular Cardiovascular Exam: Regular rate, Normal rhythm, Normal heart sounds - GI/Abdominal GI/Abdominal exam: Soft, Tenderness (TTP epigastric region, no rebound, no guarding present). negative: Distended, Rebound, Rigid - Rectal Rectal exam: Deferred - exam: Deferred - Extremities Extremities exam: Normal inspection. negative: Calf tenderness, Pedal edema, Tenderness - Back Back exam: Denies: CVA tenderness (R), CVA tenderness (L) - Neurological Neurological exam: Alert, Normal gait, Oriented X3 - Psychiatric Psychiatric exam: Normal affect, Normal mood - Skin Skin exam: Normal color. negative: Abrasion Type of lesion: negative: abrasion Course Vital Signs 03/26/18 17:57 Pulse Rate 95 H Respiratory 18 Rate Blood Pressure 149/104 Pulse Ox 99 - Reevaluation(s) Reevaluation #1: 03/26/18 19:28 Labs reviewed, AST 286, ALT 76, Lipase 247. AG 20. Labs are otherwise grossly unremarkable for an acute process. Patient is asking for something to drink currently, apple juice provided. Reevaluation #2: 03/26/18 19:40 Patient reassessed, reports that he is feeling much improved, tolerating PO, and appears stable for discharge at this time. Patient is in agreement with the plan of care as discussed, will call for a ride. Medical Decision Making - Lab Data Result diagrams: 03/26/18 18:00 03/26/18 18:00 Disposition Disposition: Discharge Clinical Impression: Pancreatitis Qualifiers: Chronicity: acute Pancreatitis type: alcohol induced Acute pancreatitis complication: unspecified Qualified Code(s): K85.20 - Alcohol induced acute pancreatitis without necrosis or infection EtOH dependence Qualifiers: Substance use status: unspecified alcohol-induced disorder Qualified Code(s): F10.29 - Alcohol dependence with unspecified alcohol-induced disorder Disposition: Home, Self-Care Condition: (2) Stable Instructions: Pancreatitis (ED) Additional Instructions: Return to ED if your symptoms worsen or if you have any concerns. Naporsyn and Zofran as directed. Follow-up with a primary care provider from the referral list given in 1-3 days as directed. Prescriptions: Naproxen [Naprosyn] 500 mg PO Q12H #30 tab. Ondansetron [Zofran Odt] 4 mg PO Q8H PRN #15 tab.rapdis PRN Reason: Nausea/Vomiting Forms: Patient Portal Access Time of Disposition: 19:43 Quality - Quality Measures Quality Measures: N/A - Blood Pressure Screening Does Patient Have Any of the Following: No Blood Pressure Classification: Hypertensive Reading Systolic Measurement: 149 Diastolic Measurement: 104 Screening for High Blood Pressure: < First Hypertensive BP, F/U Documented > [ G8950] First Hypertensive Follow-up Interventions: Referral to alternative/primary care provider.
[2018-03-26 18:41] LABS: HEMATOCRIT 50.2 % (42.0-52.0); MEAN CELL VOLUME 93.1 fl (81-97); MEAN CORPUSCULAR HEMOGLOBIN 33.4 pg (27-33); MEAN CORPUSCULAR HGB CONC 35.9 g/dl (32-36); MEAN PLATELET VOLUME 9.6 fl (7.4-10.4); PLATELET COUNT 247 K/uL (130-400); RED BLOOD COUNT 5.39 M/uL (4.40-5.70); RED CELL DISTRIBUTION WIDTH 15.8 % (11.5-14.5); WHITE BLOOD COUNT W/O DIFF 10.6 K/uL (4.2-12.2)
[2018-03-26] MEDS ORDERED: 0.9 % SODIUM CHLORIDE 1000ML 1,000 ML IV SCH (18:45)
[2018-03-26 18:50] LABS: BLOOD UREA NITROGEN 15 mg/dL (6-20); CREATININE 0.5 mg/dL (0.7-1.2); EST GLOMERULAR FILTRATION RATE > 60 mL/min
[2018-03-26 18:51] LABS: TOTAL PROTEIN 7.2 g/dL (6.6-8.7)
[2018-03-26 18:53] LABS: GLUCOSE,RANDOM 188 mg/dL (74-109)
[2018-03-26 18:56] LABS: ALB/GLOB RATIO 0.9 (1.1-1.8); ALBUMIN 3.4 g/dL (4.0-5.0); ALKALINE PHOSPHATASE 146 U/L (40-129); ALT/SGPT 76 U/L (<41); AST/SGOT 286 U/L (10.0-50.0); LIPASE 247 U/L (13-60)
== END 2018-03-26 20:27 | disposition home or self-care (01) ==
LOC: ER 17:53
DX: K85.20 Alcohol induced acute pancreatitis without necrosis or infection (principal); F10.29 Alcohol dependence with unspecified alcohol-induced disorder; R11.2 Nausea with vomiting, unspecified; F11.10 Opioid abuse, uncomplicated; I10 Essential (primary) hypertension; F17.210 Nicotine dependence, cigarettes, uncomplicated
CPT/HCPCS: 99284 ×2; 96374; 96375; 96361; 83690; 80053; 85027; J1885; J2405; J7030

== ENCOUNTER 2019-04-29 23:24 | Observation (INO) | payer MEDICAID ==
--- NOTE | 2019-04-29 23:41 | Emergency Department Record ---
History of Present Illness - General Chief complaint: Lower Extremity Pain Stated complaint: THINKS HAS BLOOD CLOT Time Seen by Provider: 04/29/19 23:34 Source: Patient Mode of Arrival: Ambulatory Limitations: No limitations - History of Present Illness Initial comments: 58 yo male presents to ED for evaluation of a "possible blood clot". Patient reports previous DVT in September while in rehabilitation for alcohol abuse and Stage IV liver failure which has resolved. Patient reports that he was treated with anticoagulation medications for approximately 3 months. Patient presents to ED for evaluation this evening with "swelling to both legs", denies pain to the calf or popliteal region. Patient denies previous history of CHF or renal disease. Patient reports that he has been in remission for his alcoholism. MD Complaint: Extremity swelling -: Unknown Location: Left, Right, Ankle History of Same: Yes Radiation: None Consistency: Constant Improves with: Nothing Worsens with: Nothing Associated Symptoms: Denies other symptoms - Related Data Home Medications Medication Instructions Recorded Confirmed Last Taken Amlodipine Besylate [Norvasc] 10 mg PO DAILY 04/29/19 04/29/19 Unknown Buprenorphine HCl/Naloxone HCl 1 each SL TID 04/29/19 04/29/19 Unknown [Suboxone 2 mg-0.5 mg Sl Film] Duloxetine HCl [Cymbalta] 30 mg PO BID 04/29/19 04/29/19 Unknown Ibuprofen [Motrin] 800 mg PO Q8H PRN 04/29/19 04/29/19 Unknown Pravastatin Sodium [Pravachol] 20 mg PO QHS 04/29/19 04/29/19 Unknown Trazodone HCl 100 - 150 mg PO QHS PRN 04/29/19 04/29/19 Unknown Allergies Allergy/AdvReac Type Severity Reaction Status Date / Time No Known Allergies Allergy HYPERSENSIT Verified 01/12/18 17:03 IVITY Review of Systems Constitutional: Denies: Chills, Fever, Malaise, Night sweats Eyes: Denies: Eye discharge, Eye pain ENT: Denies: Congestion, Ear pain, Epistaxis Respiratory: Denies: Cough, Dyspnea Cardiovascular: Reports: Edema. Denies: Chest pain, Dyspnea on exertion, Palpitations Endocrine: Denies: Fatigue, Heat or cold intolerance Gastrointestinal: Denies: Abdominal pain, Nausea, Vomiting Genitourinary: Denies: Incontinence, Retention Musculoskeletal: Denies: Arthralgia, Back pain Skin: Reports: Bruising. Denies: Change in color Neurological: Denies: Abnormal gait, Confusion, Headache, Seizure Psychiatric: Denies: Anxiety Hematological/Lymphatic: Reports: Blood Clots. Denies: Anemia Past Medical History - SOCIAL HISTORY Smoking Status: Current every day smoker Drug Use Detail:: Opiates - RESPIRATORY Hx Respiratory Disorders: Yes Hx Asthma: Yes - CARDIOVASCULAR Hx Cardio Disorders: Yes Hx Hypertension: Yes Comment:: hyperlipidemia - NEURO Hx Neuro Disorders: No - GI Hx GI Disorders: Yes Hx Abdominal Pain: Yes Hx Diverticulitis: Yes Hx Reflux: Yes Hx Pancreatitis: Yes (LAST FLARE WAS EARLIER THIS YEAR) Hx Wt Loss/Wt Gain: Yes (WT. LOSS) - Hx Genitourinary Disorders: No - ENDOCRINE Hx Endocrine Disorders: No - MUSCULOSKELETAL Hx Musculoskeletal Disorders: Yes Hx Arthritis: Yes (PATIENT STATES IT IS RHEUMATOI) - PSYCH Hx Psych Problems: No - HEMATOLOGY/ONCOLOGY Hx Hematology/Oncology Disorders: No Family Medical History Hx Diabetes: Mother Hx Heart Disease: Father Physical Exam - General General Appearance: Alert, Oriented x3, Cooperative, Mild distress Limitations: No limitations - Head Head exam: Atraumatic, Normocephalic, Normal inspection Head exam detail: negative: Abrasion, Contusion, Villeda's sign, General tenderness, Hematoma, Laceration - Eye Eye exam: Other (Dysconjugate gaze present on examination). negative: Conjunctival injection, Periorbital swelling, Periorbital tenderness, Scleral icterus - ENT Ear exam: negative: Auricular hematoma, Auricular trauma Nasal Exam: negative: Active bleeding, Discharge, Dried blood, Foreign body Mouth exam: negative: Drooling, Laceration, Muffled voice, Tongue elevation - Neck Neck exam: Normal inspection. negative: Meningismus, Tenderness - Respiratory Respiratory exam: Normal lung sounds bilaterally. negative: Rales, Respiratory distress, Rhonchi, Stridor - Cardiovascular Cardiovascular Exam: Normal rhythm, Normal heart sounds, Tachycardia - GI/Abdominal GI/Abdominal exam: Soft. negative: Rebound, Rigid, Tenderness - Rectal Rectal exam: Deferred - exam: Deferred - Extremities Extremities exam: Pedal edema, Other (2+ lower extremity edema present bilaterally, ecchymosis to the forearms bilaterally). negative: Calf tenderness, Tenderness - Back Back exam: Denies: CVA tenderness (R), CVA tenderness (L) - Neurological Neurological exam: Alert, Normal gait, Oriented X3 - Psychiatric Psychiatric exam: Normal affect, Normal mood - Skin Skin exam: Normal color. negative: Abrasion Type of lesion: negative: abrasion Course Vital Signs 04/29/19 23:29 Temperature 98.0 F Pulse Rate [ 109 H Left] Respiratory 16 Rate Blood Pressure 134/80 [Left] Pulse Ox 100 - Reevaluation(s) Reevaluation #1: 04/30/19 00:12 Laboratory studies were reviewed and are grossly unremarkable for an acute process except for the following: D-Dimer 3.31 INR 1.3 AST 123 ALT 119 T. Bili 1.3 Albumin 2.8 BNP: 496 Alcohol 0.113 04/30/19 00:46 Patient was updated on all results As DVT cannot be excluded, will administer Lovenox SQ x 1, order CTA chest to exclude PE. Will plan on admission for dopplers in the AM although lower extremity edema is likely secondary to low albumin from liver disease. Will order Ativan as needed for withdrawal symptoms. Reevaluation #2: 04/30/19 01:34 CTA Chest: Multiple non-calcified pulmonary nodules No evidence for PE Ascites Mild gallbladder wall thickening, possible internal lesion, clinical correlation suggested. Patient was updated on all results, no clinical evidence for acute cholecystitis on examination. Will admit for lower extremity dopplers in AM. Reevaluation #3: 04/30/19 06:48 Case was discussed with Mal Nielsen NP, will accept admission at this time. Reevaluation #4: 04/30/19 06:49 Case was discussed with Mal Nielsen NP, will accept admission at this time. Medical Decision Making - Lab Data Result diagrams: 04/29/19 23:46 04/29/19 23:46 Disposition Disposition: Admit Clinical Impression: Edema of lower extremity, Alcoholic liver disease, Hypoalbuminemia EtOH dependence Qualifiers: Substance use status: unspecified alcohol-induced disorder Qualified Code(s): F10.29 - Alcohol dependence with unspecified alcohol-induced disorder Disposition: Still a Patient at [facility] Decision to Admit: Admit from ER Decision to Admit Date: 04/30/19 Decision to Admit Time: 01:36 Condition: (2) Stable Time of Disposition: 01:36 Quality - Quality Measures Quality Measures: N/A - Blood Pressure Screening Does Patient Have Any of the Following: No Blood Pressure Classification: Pre-Hypertensive BP Reading Systolic Measurement: 131 Diastolic Measurement: 62 Screening for High Blood Pressure: < Pre-Hypertensive BP, F/U Documented > [G8950] Pre-Hypertensive Follow-up Interventions: Referral to alternative/primary care provider.
[2019-04-29 23:54] LABS: ABSOLUTE NEUTROPHIL COUNT 4.52; EOS % 3.4 % (0-6); GRAN % 67.7 % (47-80); HEMATOCRIT 39.3 % (42.0-52.0); HEMOGLOBIN 13.1 gm/dl (14.0-18.0); LYMPH % 18.3 % (16-45); MEAN CELL VOLUME 103.4 fl (81-97); MEAN CORPUSCULAR HGB CONC 33.3 g/dl (32-36); MEAN PLATELET VOLUME 10.5 fl (7.4-10.4); MONO % 9.6 % (0-9); PLATELET COUNT 124 K/uL (130-400); RED CELL DISTRIBUTION WIDTH 17.4 % (11.5-14.5); WHITE BLOOD COUNT W/O DIFF 6.7 K/uL (4.2-12.2)
[2019-04-29 23:55] LABS: MEAN CORPUSCULAR HEMOGLOBIN 34.4 pg (27-33)
[2019-04-30 00:03] LABS: BLOOD UREA NITROGEN 18 mg/dL (6-20); CREATININE 0.6 mg/dL (0.7-1.2); EST GLOMERULAR FILTRATION RATE > 60 mL/min
[2019-04-30 00:04] LABS: TOTAL PROTEIN 6.3 g/dL (6.6-8.7)
[2019-04-30 00:06] LABS: GLUCOSE,RANDOM 124 mg/dL (74-109)
[2019-04-30 00:08] LABS: ALB/GLOB RATIO 0.8 (1.1-1.8); ALBUMIN 2.8 g/dL (4.0-5.0); ALT/SGPT 119 U/L (<41); AST/SGOT 123 U/L (10.0-50.0); INR 1.3; PROTHROMBIN TIME (PATIENT) 13.6 SECONDS (9.5-12.1)
[2019-04-30 00:09] LABS: ALKALINE PHOSPHATASE 210 U/L (40-129)
[2019-04-30] MEDS ORDERED: ENOXAPARIN 100 MG/ML SYR SQ ONE (00:45)
[2019-04-30 01:35] LABS: URINE APPEARANCE CLEAR; URINE BILIRUBIN SMALL (NEGATIVE); URINE BLOOD NEGATIVE (NEGATIVE); URINE COLOR YELLOW; URINE GLUCOSE (UA) NEGATIVE (NEGATIVE); URINE KETONE TRACE (NEGATIVE); URINE LEUKOCYTE ESTERASE NEGATIVE (NEGATIVE); URINE NITRITE NEGATIVE (NEGATIVE); URINE PROTEIN TRACE (NEGATIVE)
[2019-04-30 01:42] LABS: URINE EPITHELIAL CELLS NONE SEEN (FEW); URINE RBC NONE SEEN (NONE SEEN); URINE WBC 0 - 2 (0-2/hpf)
[2019-04-30 01:43] LABS: URINE MUCUS HEAVY
[2019-04-30] MEDS: NICOTINE 21 MG/24 HOUR PATCH TD SCH ×2 (01:50→09:36)
[2019-04-30] MEDS ORDERED: TRAZODONE 50 MG TABLET PO PRN (02:53)
[2019-04-30] MEDS ORDERED: 0.9 % SODIUM CHLORIDE 1000ML 1,000 ML IV PRN (02:53)
[2019-04-30] MEDS ORDERED: LORAZEPAM 2 MG/ML VIAL IV PRN (02:53)
[2019-04-30] MEDS ORDERED: PANTOPRAZOLE SODIUM 40 MG TABLET PO SCH (07:00)
[2019-04-30] MEDS ORDERED: IBUPROFEN 400 MG TABLET PO PRN (08:59)
[2019-04-30] MEDS ORDERED: NALOXONE HCL SL SCH (10:00)
[2019-04-30] MEDS ORDERED: BUPRENORPHINE HCL SL SCH (10:00)
[2019-04-30] MEDS ORDERED: BUPRENORPHINE HCL PO SCH (10:00)
[2019-04-30] MEDS ORDERED: [UNRECOGNIZED DRUG - OTHER] SL SCH (10:00)
[2019-04-30] MEDS ORDERED: [UNRECOGNIZED DRUG - OTHER] PO SCH (10:00)
[2019-04-30] MEDS ORDERED: BUPRENORPHINE SL SCH (10:00)
[2019-04-30] MEDS ORDERED: DULOXETINE HCL 30 MG CAPSULE.DR PO SCH (10:00)
[2019-04-30] MEDS ORDERED: AMLODIPINE BESYLATE 5MG TAB PO SCH (10:00)
[2019-04-30] MEDS ORDERED: NALOXONE SL SCH (10:00)
[2019-04-30] MEDS ORDERED: NALOXONE HCL PO SCH (10:00)
--- NOTE | 2019-04-30 10:58 | CT ANGIOGRAM REPORT ---
EXAM: CT ANGIOGRAM OF THE CHEST WITH POST PROCESSING HISTORY: SWELLING IN LEGS. CHRONIC COUGH. ELEVATED D-DIMER. BLOOD CLOT HISTORY. TECHNIQUE: Routine CTA examination of the chest was performed utilizing a pulmonary embolus protocol with 100 ml of Omnipaque 350 utilized. Maximum intensity projection reformatted images are generated in the coronal and sagittal planes and reviewed. Comparison: Two view chest radiographic examination dated 03/23/18. FINDINGS: Opacification of the pulmonary arteries is satisfactory for interpretation. No luminal filling defect is noted in the outflow tract, main arteries, lobar arteries, or proximal segmental arteries to suggest acute pulmonary embolic disease. The heart is not enlarged. There is no evidence of right heart strain. No gross coronary artery calcification. The thoracic aorta is normal caliber without dissection. Minor atherosclerosis of the aortic arch and arch branch vessels. Multiple noncalcified mediastinal lymph nodes are identified. The largest of these is located within the subcarinal region measuring 1.4 cm in short axis diameter. Another in the AP window measures approximately 10-11 mm in short axis diameter. The remainder measure less than 10 mm in short axis diameter. Lymphoid tissue in the right hilum is near the upper limits of normal. The central airways are clear. There is a somewhat bilobed nodule in the lateral segment of the right middle lobe best seen on series 2 image 135. This measures 5.8 x 4.5 mm. Occasional tiny additional nodules are noted in the mid to upper right lung. There are several small noncalcified nodules scattered within the left lung, primarily in the left base with the largest measuring 4.5 mm as seen on series 2 image 162. These left lung base nodules are not significantly changed since the 03/22/18 examination. Previously demonstrated micronodular opacities within the posterior lung bases have cleared. No lung consolidation. No pleural or pericardial effusion. No pneumothorax. The adrenal glands are not enlarged. There is a small volume of ascites within the upper abdomen. The wall of the gallbladder appears mildly prominent in thickness. This may just relate to lack of distention and due to the presence of ascites. There are nonenlarged to mildly enlarged lymph nodes in the gastrohepatic ligament/periportal region with the largest lymph node measuring 1.3 cm in diameter. No lytic or blastic bone lesion. IMPRESSION: 1. NO CTA EVIDENCE OF ACUTE PULMONARY EMBOLIC DISEASE. 2. MULTIPLE MEDIASTINAL LYMPH NODES ARE IDENTIFIED A COUPLE OF WHICH ARE MILDLY ENLARGED. THESE ARE NONSPECIFIC AND WHILE LIKELY INFLAMMATORY/INFECTIOUS, A NEOPLASTIC PROCESS IS NOT EXCLUDED. 3. SEVERAL SMALL BILATERAL LUNG NODULES WITH THE LARGEST IN THE RIGHT MIDDLE LOBE. GIVEN THE MILD MEDIASTINAL ADENOPATHY, FOLLOW-UP CT CHEST EXAMINATION IN 3-6 MONTHS IS RECOMMENDED. 4. SMALL VOLUME OF ASCITES. 5. APPARENT MILD WALL THICKENING OF THE GALLBLADDER, DISCUSSED ABOVE. 6. SEVERAL NONENLARGED TO MILDLY ENLARGED GASTROHEPATIC LIGAMENT/PERIPORTAL LYMPH NODES. THESE ARE ALSO NONSPECIFIC THOUGH LIKELY REACTIVE/INFLAMMATORY. JOB NUMBER: [id number] [facility]
--- NOTE | 2019-04-30 11:53 | History & Physical ---
History of Present Illness - Date of Service Date of Service for History & Physical: 04/30/19 - History of Present Illness Admitting Diagnosis: Lower extremity edema. Alcoholic liver disease. Elevated D-Dimer. Hypoalbuminemia History of Present Illness: Karlene Hernandez is a 58 yo. M who presented to the ED d/t LE swelling and concern for possible DVT d/t hx of DVT. Was found to have an elevated d-dimer of 3.31 and CTA was negative for PE. Reported that he underwent rehabilitation in September 2018 for alcohol abuse and "stage IV liver failure which has resolved". Reports that he hasn't drank since September, however ethyl alcohol level = 0.113 . PCP: Dr. Martinez ([facility]) 04/30/19 1120: Vitals WNL Lying flat in bed. Alert and Oriented. Denies any pain to BLE. BLE dopplars completed this a.m. did not show evidence of DVT. Travel Screening - Travel/Exposure Within Last 30 Days Have you traveled within the last 30 days?: No - Travel/Exposure Within Last Year Have you traveled outside the [place] in the last year?: No - Additonal Travel Details Have you been exposed to anyone with a communicable illness?: No - Travel Symptoms Symptom Screening: None Review of Systems Reviewed: No additional complaints except as noted below Constitutional: Denies: Chills, Fever, Malaise, Night sweats Eyes: Denies: Eye discharge, Eye pain ENT: Denies: Congestion, Ear pain, Epistaxis Respiratory: Denies: Cough, Dyspnea Cardiovascular: Reports: Edema. Denies: Chest pain, Dyspnea on exertion, Palpitations Endocrine: Denies: Fatigue, Heat or cold intolerance Gastrointestinal: Denies: Abdominal pain, Nausea, Vomiting Genitourinary: Denies: Incontinence, Retention Musculoskeletal: Denies: Arthralgia, Back pain Skin: Reports: Bruising. Denies: Change in color Neurological: Denies: Abnormal gait, Confusion, Headache, Seizure Psychiatric: Denies: Anxiety Hematological/Lymphatic: Denies: Anemia Past Medical History - SOCIAL HISTORY Smoking Status: Current every day smoker Drug Use Detail:: Opiates - RESPIRATORY Hx Respiratory Disorders: Yes Hx Asthma: Yes - CARDIOVASCULAR Hx Cardio Disorders: Yes Hx Hypertension: Yes Comment:: hyperlipidemia - NEURO Hx Neuro Disorders: No - GI Hx GI Disorders: Yes Hx Abdominal Pain: Yes Hx Diverticulitis: Yes Hx Reflux: Yes Hx Pancreatitis: Yes (LAST FLARE WAS EARLIER THIS YEAR) Hx Wt Loss/Wt Gain: Yes (WT. LOSS) - Hx Genitourinary Disorders: No - ENDOCRINE Hx Endocrine Disorders: No - MUSCULOSKELETAL Hx Musculoskeletal Disorders: Yes Hx Arthritis: Yes (PATIENT STATES IT IS RHEUMATOI) - PSYCH Hx Psych Problems: No - HEMATOLOGY/ONCOLOGY Hx Hematology/Oncology Disorders: No Family Medical History Hx Diabetes: Mother Hx Heart Disease: Father H&P Meds/Allergies - Allergies Allergies: Allergies Allergy/AdvReac Type Severity Reaction Status Date / Time No Known Allergies Allergy HYPERSENSIT Verified 01/12/18 17:03 IVITY - Home Medications Home Medications Medication Instructions Recorded Confirmed Last Taken Amlodipine Besylate [Norvasc] 10 mg PO DAILY 04/29/19 04/29/19 Unknown Buprenorphine HCl/Naloxone HCl 1 each SL TID 04/29/19 04/29/19 Unknown [Suboxone 2 mg-0.5 mg Sl Film] Ibuprofen [Motrin] 800 mg PO Q8H PRN 04/29/19 04/29/19 Unknown Pravastatin Sodium [Pravachol] 20 mg PO QHS 04/29/19 04/29/19 Unknown Trazodone HCl 100 - 150 mg PO QHS PRN 04/29/19 04/29/19 Unknown - Active Medications Active Medications: Current Medications Amlodipine Besylate (Norvasc) 10 mg PO DAILY [facility] Last Admin: 04/30/19 09:36 Dose: 10 mg Documented by: Sodium Chloride () 1,000 mls @ 100 mls/hr IV .Q10H PRN PRN Reason: LARGE VOLUME IV Last Admin: 04/30/19 04:42 Dose: 100 mls/hr Documented by: Ibuprofen (Motrin 400mg) 800 mg PO Q8H PRN PRN Reason: PAIN - MILD TO MODERATE (1-7) Lorazepam (Ativan) 2 mg IV Q4H PRN PRN Reason: RESTLESSNESS Nicotine (Nicotine 21mg) 1 patch TD DAILY [facility] Last Admin: 04/30/19 09:36 Dose: 1 patch Documented by: Pantoprazole Sodium (Protonix) 40 mg PO DAILYAC [facility] Last Admin: 04/30/19 06:20 Dose: 40 mg Documented by: Patient Own Med: Buprenorphine/Naloxone 2 Mg/0.5 Mg 1 each SL TID LEILA Simvastatin (Zocor) 10 mg PO QHS LEILA Trazodone HCl (Desyrel) 100 - 150 mg PO QHS PRN PRN Reason: insomnia. Physical Exam - Vital Signs Vital Signs: Vital Signs - Last 24 Hrs Temp Pulse Pulse Resp BP Pulse Ox 04/30/19 08:00 98.3 F 71 16 127/72 96 04/30/19 03:23 18 04/30/19 03:20 98.6 F 73 18 131/62 99 04/30/19 02:50 98.4 F 73 18 131/62 99 04/30/19 01:00 70 16 148/65 95 04/29/19 23:29 98.0 F 109 H 16 134/80 100 - General General Appearance: Alert, Oriented x3, Cooperative, No acute distress Limitations: No limitations - Head Head exam: Atraumatic, Normocephalic, Normal inspection Head exam detail: negative: Abrasion, Contusion, Villeda's sign, General tenderness, Hematoma, Laceration - Eye Eye exam: Other (Dysconjugate gaze present on examination). negative: Conjunct ival injection, Periorbital swelling, Periorbital tenderness, Scleral icterus - ENT Ear exam: negative: Auricular hematoma, Auricular trauma Nasal Exam: negative: Active bleeding, Discharge, Dried blood, Foreign body Mouth exam: negative: Drooling, Laceration, Muffled voice, Tongue elevation - Neck Neck exam: Normal inspection. negative: Meningismus, Tenderness - Respiratory Respiratory exam: Normal lung sounds bilaterally. negative: Rales, Respiratory distress, Rhonchi, Stridor - Cardiovascular Cardiovascular Exam: Normal rhythm, Normal heart sounds - GI/Abdominal GI/Abdominal exam: Soft. negative: Rebound, Rigid, Tenderness - Rectal Rectal exam: Deferred - exam: Deferred - Extremities Extremities exam: Pedal edema, Other (2+ lower extremity edema present bilaterally, ecchymosis to the forearms bilaterally). negative: Calf tenderness, Tenderness - Back Back exam: Denies: CVA tenderness (R), CVA tenderness (L) - Neurological Neurological exam: Alert, Normal gait, Oriented X3 - Psychiatric Psychiatric exam: Normal affect, Normal mood - Skin Skin exam: Normal color. negative: Abrasion Type of lesion: negative: abrasion Results - Labs Result Diagrams: 04/29/19 23:46 04/29/19 23:46 Labs Last 24 Hours: Laboratory Results - last 24 hr 04/29/19 04/29/19 04/29/19 23:46 23:46 23:46 WBC 6.7 RBC 3.80 L Hgb 13.1 L Hct 39.3 L MCV 103.4 H MCH 34.4 H MCHC 33.3 RDW 17.4 H Plt Count 124 L MPV 10.5 H Gran % 67.7 Lymphocytes % 18.3 Monocytes % 9.6 H Eosinophils % 3.4 Basophils % 1.0 Absolute Neutrophils 4.52 PT 13.6 H INR 1.3 D-Dimer 3.31 H Sodium 139 Potassium 3.9 Chloride 102 Carbon Dioxide 25.0 Anion Gap 12.0 BUN 18 Creatinine 0.6 L Estimated GFR > 60 Random Glucose 124 H Calcium 8.0 L Total Bilirubin 1.30 H AST 123 H ALT 119 H Alkaline Phosphatase 210 H NT-Pro-B Natriuret Pep 496.50 H Total Protein 6.3 L Albumin 2.8 L Globulin 3.5 Albumin/Globulin Ratio 0.8 L Urine Color Urine Appearance Urine pH Ur Specific [place] Urine Protein Urine Glucose (UA) Urine Ketones Urine Blood Urine Nitrite Urine Bilirubin Urine Urobilinogen Ur Leukocyte Esterase Urine RBC Urine WBC Ur Epithelial Cells Urine Mucus Ethyl Alcohol 04/29/19 04/30/19 23:46 01:10 WBC RBC Hgb Hct MCV MCH MCHC RDW Plt Count MPV Gran % Lymphocytes % Monocytes % Eosinophils % Basophils % Absolute Neutrophils PT INR D-Dimer Sodium Potassium Chloride Carbon Dioxide Anion Gap BUN Creatinine Estimated GFR Random Glucose Calcium Total Bilirubin AST ALT Alkaline Phosphatase NT-Pro-B Natriuret Pep Total Protein Albumin Globulin Albumin/Globulin Ratio Urine Color Yellow Urine Appearance Clear Urine pH 6.0 Ur Specific [place] 1.015 Urine Protein Trace H Urine Glucose (UA) Negative Urine Ketones Trace H Urine Blood Negative Urine Nitrite Negative Urine Bilirubin Small H Urine Urobilinogen 1.0 Ur Leukocyte Esterase Negative Urine RBC None seen Urine WBC 0 - 2 Ur Epithelial Cells None seen Urine Mucus Heavy Ethyl Alcohol 0.113 H VTE H&P Assessment - Risk for VTE Risk for VTE: Yes Risk Level: High Risk Assessment Date: 04/30/19 Risk Assessment Time: 11:20 VTE Orders Placed or Will Be Placed: Yes Plan - Detailed Diagnosis and Plan (1) Edema of lower extremity Status: Acute Base Code: R60.0 - LOCALIZED EDEMA Comment: 04/30/19 -BLE 2+ pitting edema -BLE dopplers: Negative for DVT -Likely 2/2 low albumin d/t liver disese and/or Amlodipine use -Instructed to f/u with PCP (2) Hypoalbuminemia Status: Acute Base Code: E88.09 - OTH DISORDERS OF PLASMA-PROTEIN METABOLISM, NEC Comment: 04/30/19 -Albumin 2.8, likely attributing to alcoholic liver disease -Pt reports alcohol remission, however alcohol level 0.113 in ED (3) DVT prophylaxis Status: Acute Base Code: Z29.9 - ENCOUNTER FOR PROPHYLACTIC MEASURES, UNSPECIFIED Comment: 04/30/19 -Lovenox SQ x 1 administered -Nursing to encourage ambulation (4) Full code status Status: Acute Base Code: Z78.9 - OTHER SPECIFIED HEALTH STATUS Comment: 03/22/18 pt. remains full code status
--- NOTE | 2019-04-30 11:59 | Discharge Summary ---
Providers Discharge Summary Date: 04/30/19 Date of admission: 04/30/19 02:48 Attending physician: PAULINO BRASWELL Physical Exam - Vital Signs Vital Signs: Vital Signs - Last 24 Hrs Temp Pulse Pulse Resp BP Pulse Ox 04/30/19 08:00 98.3 F 71 16 127/72 96 04/30/19 03:23 18 04/30/19 03:20 98.6 F 73 18 131/62 99 04/30/19 02:50 98.4 F 73 18 131/62 99 04/30/19 01:00 70 16 148/65 95 04/29/19 23:29 98.0 F 109 H 16 134/80 100 - General General Appearance: Alert, Oriented x3, Cooperative, No acute distress Limitations: No limitations - Head Head exam: Atraumatic, Normocephalic, Normal inspection Head exam detail: negative: Abrasion, Contusion, Villeda's sign, General tenderness, Hematoma, Laceration - Eye Eye exam: Other (Dysconjugate gaze present on examination). negative: Conjunctival injection, Periorbital swelling, Periorbital tenderness, Scleral icterus - ENT Ear exam: negative: Auricular hematoma, Auricular trauma Nasal Exam: negative: Active bleeding, Discharge, Dried blood, Foreign body Mouth exam: negative: Drooling, Laceration, Muffled voice, Tongue elevation - Neck Neck exam: Normal inspection. negative: Meningismus, Tenderness - Respiratory Respiratory exam: Normal lung sounds bilaterally. negative: Rales, Respiratory distress, Rhonchi, Stridor - Cardiovascular Cardiovascular Exam: Normal rhythm, Normal heart sounds - GI/Abdominal GI/Abdominal exam: Soft. negative: Rebound, Rigid, Tenderness - Rectal Rectal exam: Deferred - exam: Deferred - Extremities Extremities exam: Pedal edema, Other (2+ lower extremity edema present bilaterally, ecchymosis to the forearms bilaterally). negative: Calf ten derness, Tenderness - Back Back exam: Denies: CVA tenderness (R), CVA tenderness (L) - Neurological Neurological exam: Alert, Normal gait, Oriented X3 - Psychiatric Psychiatric exam: Normal affect, Normal mood - Skin Skin exam: Normal color. negative: Abrasion Type of lesion: negative: abrasion Hospitalization - Hospitalization Admission Diagnosis: Lower extremity edema. Alcoholic liver disease. Elevated D-Dimer. Hypoalbuminemia - Problem List/Discharge Diagnosis (1) Edema of lower extremity Status: Acute Base Code: R60.0 - LOCALIZED EDEMA Comment: 04/30/19 -BLE 2+ pitting edema -BLE dopplers: Negative for DVT -Likely 2/2 low albumin d/t liver disese and/or Amlodipine use -Instructed to f/u with PCP (2) DVT prophylaxis Status: Acute Base Code: Z29.9 - ENCOUNTER FOR PROPHYLACTIC MEASURES, UNSPECIFIED Comment: 04/30/19 -Lovenox SQ x 1 administered -Nursing to encourage ambulation - Hospitalization Course Disposition: Home, Self-Care Hospital Course: Karlene Hernandez is a 58 yo. M who presented to the ED d/t LE swelling and concern for possible DVT d/t hx of DVT. Was found to have an elevated d-dimer of 3.31 and CTA was negative for PE. Reported that he underwent rehabilitation in September 2018 for alcohol abuse and "stage IV liver failure which has resolved". Reports that he hasn't drank since September, however ethyl alcohol level = 0.113. PCP: Dr. Martinez ([facility]) 04/30/19 1120: Vitals WNL Lying flat in bed. Alert and Oriented. Denies any pain to BLE. BLE dopplars completed this a.m. did not show evidence of DVT. Procedures: Imaging and X-Rays 04/30/19 00:44 CHEST CTA w contrast [CTA] Stat 04/30/19 02:53 VENOUS DOPPLER LOWER EXT JANES [US] Stat Abnormal Labs: Abnormal Lab Results 04/29/19 04/29/19 04/29/19 Range/Units 23:46 23:46 23:46 RBC 3.80 L (4.40-5.70) M/uL Hgb 13.1 L (14.0-18.0) gm/dl Hct 39.3 L (42.0-52.0) % MCV 103.4 H (81-97) fl MCH 34.4 H (27-33) pg RDW 17.4 H (11.5-14.5) % Plt Count 124 L (130-400) K/uL MPV 10.5 H (7.4-10.4) fl Monocytes % 9.6 H (0-9) % PT 13.6 H (9.5-12.1) SECONDS D-Dimer 3.31 H (0-0.59) mg/L FEU Creatinine 0.6 L (0.7-1.2) mg/dL Random Glucose 124 H (74-109) mg/dL Calcium 8.0 L (8.6-10.0) mg/dL Total Bilirubin 1.30 H (0.2-1.0) mg/dL AST 123 H (10.0-50.0) U/L ALT 119 H (<41) U/L Alkaline Phosphatase 210 H (40-129) U/L NT-Pro-B Natriuret Pep 496.50 H (<125) pg/mL Total Protein 6.3 L (6.6-8.7) g/dL Albumin 2.8 L (4.0-5.0) g/dL Albumin/Globulin Ratio 0.8 L (1.1-1.8) Urine Protein (NEGATIVE) Urine Ketones (NEGATIVE) Urine Bilirubin (NEGATIVE) Ethyl Alcohol (0-0.010) g/dL 04/29/19 04/30/19 Range/Units 23:46 01:10 RBC (4.40-5.70) M/uL Hgb (14.0-18.0) gm/dl Hct (42.0-52.0) % MCV (81-97) fl MCH (27-33) pg RDW (11.5-14.5) % Plt Count (130-400) K/uL MPV (7.4-10.4) fl Monocytes % (0-9) % PT (9.5-12.1) SECONDS D-Dimer (0-0.59) mg/L FEU Creatinine (0.7-1.2) mg/dL Random Glucose (74-109) mg/dL Calcium (8.6-10.0) mg/dL Total Bilirubin (0.2-1.0) mg/dL AST (10.0-50.0) U/L ALT (<41) U/L Alkaline Phosphatase (40-129) U/L NT-Pro-B Natriuret Pep (<125) pg/mL Total Protein (6.6-8.7) g/dL Albumin (4.0-5.0) g/dL Albumin/Globulin Ratio (1.1-1.8) Urine Protein Trace H (NEGATIVE) Urine Ketones Trace H (NEGATIVE) Urine Bilirubin Small H (NEGATIVE) Ethyl Alcohol 0.113 H (0-0.010) g/dL Condition at Discharge: (2) Stable Discharge Medications - Discharge Medications Home Medications: Ambulatory Orders Amlodipine Besylate [Norvasc] 10 mg PO DAILY 04/29/19 [Last Taken Unknown] Buprenorphine HCl/Naloxone HCl [Suboxone 2 mg-0.5 mg Sl Film] 1 each SL TID 04/29/19 [Last Taken Unknown] Ibuprofen [Motrin] 800 mg PO Q8H PRN 04/29/19 [Last Taken Unknown] Pravastatin Sodium [Pravachol] 20 mg PO QHS 04/29/19 [Last Taken Unknown] Trazodone HCl 100 - 150 mg PO QHS PRN 04/29/19 [Last Taken Unknown] Discharge Plan - Discharge Instructions Activity at Discharge: Increase Activity as Tolerated Diet at Discharge: Advance to Usual Diet Instructions: Pancreatitis (DC), Liver Disease Diet (DC), Chronic Hypertension (DC), Edema (DC) Additional Instructions: Activity: Increase Activity as Tolerated Diet: Advance to Usual Diet Consults: Follow Up: Additional: You do not have any blood clots. The lower leg swelling could be due to low albumin and/or the use of Amlodipine (Norvasc) Wear compression stockings and keep your legs elevated Follow up with you Primary Care Provider in 1-2 weeks as recommended Quality Measures - Quality Measures Quality Measures: Documentation of Current Medications in Medical Record, Screening for High Blood Pressure and F/U Documented - Current Medications Quality Measure: Measure #130: Documentation of Current Medications Documentation of Current Medications: <Current Medications Documented/Reviewed> [G8427] - Blood Pressure Screening Quality Measure: Screening for High Blood Pressure and Follow-Up Documented Does Patient Have Any of the Following: Active Dx of HTN Blood Pressure Classification: Hypertensive Reading Systolic Measurement: 146 Diastolic Measurement: 77 Screening for High Blood Pressure: Patient Exclusion, Hx of HTN [G9744] - Elder Abuse Suspicion Index EASI Reference Information: Taylor HWANG, Jason Camarillo, Yolanda D, Kings Hurtado.Development and validation of a tool to assist physicians identification of elder abuse: The Elder Abuse Suspicion Index (EASI ). Journal of Elder Abuse and Neglect, 2008; 20 (3): 276-300.
[2019-04-30] MEDS ORDERED: SIMVASTATIN 10MG TABLET PO SCH (22:00)
--- NOTE | 2019-05-01 07:59 | US VENOUS DOPPLER REPORT ---
EXAM: BILATERAL LOWER EXTREMITY VENOUS DOPPLER ULTRASOUND HISTORY: BILATERAL LOWER EXTREMITY SWELLING. TECHNIQUE: Lopez scale, color Doppler and Duplex Doppler evaluation of the deep venous structures of each lower extremity were performed from the external iliac vein level through the calf vein level. Comparison: None. FINDINGS: RIGHT LOWER EXTREMITY: The external iliac vein, common femoral vein, deep femoral vein, greater saphenous vein, all segments of the superficial femoral vein and popliteal vein are anechoic and compressible throughout. Normal Doppler venous waveforms are noted at all of these levels and these waveforms are augmentable. The peroneal, posterior tibial, and anterior tibial veins appear patent with normal augmentation. LEFT LOWER EXTREMITY: The external iliac vein, common femoral vein, deep femoral vein, greater saphenous vein, and all segments of the superficial femoral vein are anechoic and completely compressible throughout. Normal Doppler waveforms are noted at all of these levels and the waveforms are augmentable. The left popliteal vein appears anechoic. It is incompletely compressible though this may just relate to body habitus. There is normal venous waveform at this level which is augmentable. The peroneal, posterior tibia and anterior tibial veins appear patent with augmentable venous waveforms. IMPRESSION: 1. NO EVIDENCE OF DEEP VENOUS THROMBOSIS WITHIN THE RIGHT LOWER EXTREMITY. 2. NO DEFINITE DEEP VENOUS THROMBOSIS WITHIN THE LEFT LOWER EXTREMITY. THE LEFT POPLITEAL VEIN IS, HOWEVER, INCOMPLETELY COMPRESSIBLE. THERE IS A NORMAL WAVEFORM AT THIS LEVEL, HOWEVER. THIS MAY JUST RELATE TO BODY HABITUS. NONOCCLUSIVE THROMBUS IS LESS LIKELY. JOB NUMBER: [id number] MTDD
== END 2019-04-30 13:45 | disposition home or self-care (01) ==
LOC: ER 23:24 → MEDSURG 04-30 02:48
PROVIDERS: ADMIT Internal Medicine; ATTEND Internal Medicine
DX: R60.0 Localized edema (principal); K70.9 Alcoholic liver disease, unspecified; R79.1 Abnormal coagulation profile; E88.09 Other disorders of plasma-protein metabolism, not elsewhere classified; F10.20 Alcohol dependence, uncomplicated; I10 Essential (primary) hypertension; E78.5 Hyperlipidemia, unspecified; M06.9 Rheumatoid arthritis, unspecified; M79.661 Pain in right lower leg; J45.909 Unspecified asthma, uncomplicated; K21.9 Gastro-esophageal reflux disease without esophagitis; F17.210 Nicotine dependence, cigarettes, uncomplicated; Z86.718 Personal history of other venous thrombosis and embolism; K85.20 Alcohol induced acute pancreatitis without necrosis or infection
CPT/HCPCS: 99285 ×2; 96372; 85025; 85610; 80053; 81001; 85379; 83880; 93970; 71275; G0378; G0480; Q9967; 80320; 99236; J1650

== ENCOUNTER 2019-05-18 21:22 | Emergency (ER) | payer MEDICAID ==
[2019-05-18 21:53] LABS: HEMATOCRIT 44.7 % (42.0-52.0); HEMOGLOBIN 15.3 gm/dl (14.0-18.0); MEAN CELL VOLUME 102.3 fl (81-97); MEAN CORPUSCULAR HGB CONC 34.2 g/dl (32-36); MEAN PLATELET VOLUME 12.1 fl (7.4-10.4); PLATELET COUNT 163 K/uL (130-400); RED BLOOD COUNT 4.37 M/uL (4.40-5.70); RED CELL DISTRIBUTION WIDTH 16.2 % (11.5-14.5); WHITE BLOOD COUNT W/O DIFF 11.4 K/uL (4.2-12.2)
--- NOTE | 2019-05-18 21:53 | Emergency Department Record ---
History of Present Illness - General Chief Complaint: Shortness of breath Stated Complaint: JG,SWOLLEN BELLY Time Seen by Provider: 05/18/19 21:26 Source: Patient Mode of Arrival: Ambulatory Limitations: No limitations - History of Present Illness Initial Comments: pt c/o ap and distention. pt drank 3 wks ago. pt was recently hospitalized Complaint: Shortness of breath Onset/Timin -: Month(s) Radiation: Other Consistency: Getting worse Context: Medication noncompliance, Recent illness Associated Symptoms: Abdominal pain, Lower abdominal swelling Treatments Prior to Arrival: None - Related Data Allergies Allergy/AdvReac Type Severity Reaction Status Date / Time No Known Allergies Allergy HYPERSENSIT Verified 05/18/19 21:28 IVITY Travel Screening - Travel/Exposure Within Last 30 Days Have you traveled within the last 30 days?: No - Travel/Exposure Within Last Year Have you traveled outside the [place] in the last year?: No - Additonal Travel Details Have you been exposed to anyone with a communicable illness?: No - Travel Symptoms Symptom Screening: None Review of Systems Reviewed: No additional complaints except as noted below Constitutional: Reports: As per HPI. Denies: Chills, Fever, Malaise, Night sweats, Weakness, Weight change Eyes: Reports: As per HPI. Denies: Eye discharge, Eye pain, Photophobia, Vision change ENT: Reports: As per HPI. Denies: Congestion, Dental pain, Ear pain, Epistaxis, Hearing loss, Throat pain Respiratory: Reports: As per HPI, Dyspnea. Denies: Cough, Hemoptysis, Stridor, Wheezes Cardiovascular: Reports: As per HPI. Denies: Arrhythmia, Chest pain, Dyspnea on exertion, Edema, Murmurs, Orthopnea, Palpitations, Paroxysmal nocturnal dyspnea, Rheumatic Fever, Syncope Endocrine: Reports: As per HPI. Denies: Fatigue, Heat or cold intolerance, Polydipsia, Polyuria Gastrointestinal: Reports: As per HPI, Abdominal pain. Denies: Constipation, Diarrhea, Hematemesis, Hematochezia, Melena, Nausea, Vomiting Genitourinary: Reports: As per HPI. Denies: Dysuria, Frequency, Hematuria, Incontinence, Retention, Testicular pain, Testicular mass, Urgency Musculoskeletal: Reports: As per HPI. Denies: Arthralgia, Back pain, Gout, Joint swelling, Myalgia, Neck pain Skin: Reports: As per HPI. Denies: Bruising, Change in color, Change in hair/nails, Lesions, Pruritus, Rash Neurological: Reports: As per HPI. Denies: Abnormal gait, Confusion, Headache, Numbness, Paresthesias, Seizure, Tingling, Tremors, Vertigo, Weakness Psychiatric: Reports: As per HPI. Denies: Anxiety, Auditory hallucinations, Depression, Homicidal thoughts, Suicidal thoughts, Visual hallucinations Hematological/Lymphatic: Reports: As per HPI. Denies: Anemia, Blood Clots, Easy bleeding, Easy bruising, Swollen glands Past Medical History - SOCIAL HISTORY Smoking Status: Current every day smoker Alcohol Use: Occasional Alcohol Use Comment: couple weeks ago Drug Use: None - RESPIRATORY Hx Respiratory Disorders: Yes Hx Asthma: Yes - CARDIOVASCULAR Hx Cardio Disorders: Yes Hx Hypertension: Yes Comment:: hyperlipidemia - NEURO Hx Neuro Disorders: No - GI Hx GI Disorders: Yes Hx Abdominal Pain: Yes Hx Diverticulitis: Yes Hx Reflux: Yes Hx Pancreatitis: Yes (LAST FLARE WAS EARLIER THIS YEAR) Hx Wt Loss/Wt Gain: Yes (WT. LOSS) - Hx Genitourinary Disorders: No - ENDOCRINE Hx Endocrine Disorders: No - MUSCULOSKELETAL Hx Musculoskeletal Disorders: Yes Hx Arthritis: Yes (PATIENT STATES IT IS RHEUMATOI) - PSYCH Hx Psych Problems: No - HEMATOLOGY/ONCOLOGY Hx Hematology/Oncology Disorders: No Family Medical History Any Significant Family History?: No Hx Diabetes: Mother Hx Heart Disease: Father Physical Exam - General General Appearance: Alert, Oriented x3, Cooperative, Mild distress - Head Head exam: Normal inspection - Eye Eye exam: Normal appearance, PERRL, EOMI, Scleral icterus Pupils: Normal accommodation - ENT ENT exam: Normal exam, Mucous membranes moist, Normal external ear exam, Normal orophraynx Ear exam: Normal external inspection. negative: External canal tenderness Nasal Exam: Normal inspection. negative: Discharge, Sinus tenderness Mouth exam: Normal external inspection, Tongue normal Teeth exam: Normal inspection. negative: Dental caries Throat exam: Normal inspection. negative: Tonsillar erythema, Tonsillar exudate - Neck Neck exam: Normal inspection, Full ROM. negative: Tenderness - Respiratory Respiratory exam: Normal lung sounds bilaterally. negative: Respiratory distress - Cardiovascular Cardiovascular Exam: Normal rhythm, Normal heart sounds, Tachycardia - GI/Abdominal GI/Abdominal exam: Soft, Normal bowel sounds, Distended, Tenderness - Rectal Rectal exam: Heme (+) stool - exam: Deferred - Extremities Extremities exam: Full ROM, Normal capillary refill, Pedal edema. negative: Tenderness - Back Back exam: Reports: Normal inspection, Full ROM. Denies: Muscle spasm, Rash noted, Tenderness - Neurological Neurological exam: Alert, CN II-XII intact, Normal gait, Oriented X3 - Psychiatric Psychiatric exam: Normal affect, Normal mood - Skin Skin exam: Dry, Intact, Normal color, Warm Course Vital Signs 05/18/19 05/18/19 05/18/19 21:26 21:28 21:39 Temperature 98.7 F Pulse Rate 107 H Pulse Rate [ 123 H Pulse Ox Probe] Respiratory 32 H 24 Rate Blood Pressure 149/85 Blood Pressure 149/85 [Right Arm] Pulse Ox 96 96 - Reevaluation(s) Reevaluation #1: 05/18/19 22:53 pt had heme pos stool Medical Decision Making - Lab Data Result diagrams: 05/18/19 21:40 05/18/19 21:40 Disposition Disposition: Transfer Clinical Impression: Hepatic failure due to alcoholism Disposition: Acute Care Hospital Transfer Transfer To: [facility] Reason For Transfer: liver failure Accepting Physician: goodman hussein Time Discussed w/Accepting Physician: 23:54 Quality - Quality Measures Quality Measures: N/A - Blood Pressure Screening Does Patient Have Any of the Following: No Blood Pressure Classification: Pre-Hypertensive BP Reading Systolic Measurement: 149 Diastolic Measurement: 85 Screening for High Blood Pressure: < Pre-Hypertensive BP, F/U Documented > [G8950] Pre-Hypertensive Follow-up Interventions: Follow-up with rescreen every year.
[2019-05-18 22:02] LABS: BLOOD UREA NITROGEN 14 mg/dL (8-23); EST GLOMERULAR FILTRATION RATE > 60 mL/min; TOTAL PROTEIN 7.1 g/dL (6.6-8.7)
[2019-05-18 22:03] LABS: LIPASE 61 U/L (13-60)
[2019-05-18 22:04] LABS: GLUCOSE,RANDOM 214 mg/dL (74-109)
[2019-05-18 22:07] LABS: ALBUMIN 2.7 g/dL (4.0-5.0); ALKALINE PHOSPHATASE 244 U/L (40-129); ALT/SGPT 110 U/L (<41); AST/SGOT 204 U/L (10.0-50.0); BILIRUBIN,DIRECT 1.8 mg/dL (0-0.3)
[2019-05-18 22:25] LABS: URINE APPEARANCE SL CLOUDY; URINE BILIRUBIN MODERATE (NEGATIVE); URINE BLOOD TRACE-I (NEGATIVE); URINE COLOR STRAW; URINE KETONE NEGATIVE (NEGATIVE); URINE LEUKOCYTE ESTERASE NEGATIVE (NEGATIVE); URINE NITRITE NEGATIVE (NEGATIVE); URINE UROBILINOGEN >=8.0 E.U./dL (0.20 - 1.00)
[2019-05-18 22:26] LABS: URINE BACTERIA NONE SEEN; URINE EPITHELIAL CELLS 0 - 2 (FEW); URINE WBC 0 - 2 (0-2/hpf)
[2019-05-18] MEDS ORDERED: HYDROMORPHONE HCL 2 MG/ML VIAL IVP ONE (22:46)
[2019-05-18 23:58] LABS: INR 1.4; PARTIAL THROMBOPLASTIN TIME 33.7 SECONDS (24.5-39.1)
--- NOTE | 2019-05-19 12:23 | CT SCAN REPORT ---
EXAM: CT SCAN OF THE ABDOMEN AND PELVIS WITHOUT CONTRAST HISTORY: ABDOMINAL PAIN AND SWELLING. SHORTNESS OF BREATH. NAUSEA, VOMITING AND DIARRHEA. SYMPTOMS FOR THE PAST MONTH. TECHNIQUE: Standard CT imaging of the abdomen and pelvis was performed without contrast. Comparison: 03/22/18. FINDINGS: There is a small right pleural effusion with mild associated atelectasis. The heart is normal in size. There is no pericardial effusion. There is large volume ascites. There is mild hepatic steatosis. The gallbladder is distended. There is no calcified stone or wall thickening. There is no biliary ductal dilatation. The pancreas, spleen, and adrenal glands appear normal. There are tiny cysts within the left kidney which are not significantly different. There is no urinary tract calculus or obstructive uropathy. The aorta is normal in caliber. There are scattered nonenlarged retroperitoneal and mesenteric lymph nodes. No pathologic lymphadenopathy is identified. There are numerous diverticula within the descending and sigmoid colon regions with no evidence for acute diverticulitis. The remaining large and small bowel loops are normal. There is no pneumoperitoneum. There is a small fat containing umbilical hernia. There is generalized subcutaneous edema within the abdomen and pelvis. The urinary bladder appears normal. The prostate gland is nonenlarged. The patient is status post left total hip arthroplasty. Degenerative changes are present within the spine. There are no acute osseous abnormalities. IMPRESSION: 1. LARGE VOLUME ASCITES. 2. SMALL RIGHT PLEURAL EFFUSION WITH ASSOCIATED ATELECTASIS. 3. DISTENDED GALLBLADDER. THERE ARE NO CALCIFIED STONES OR VISIBLE WALL THICKENING. 4. COLONIC DIVERTICULOSIS WITH NO DIVERTICULITIS. 5. SMALL FAT CONTAINING UMBILICAL HERNIA. JOB NUMBER: [id number] [facility]
== END 2019-05-19 00:27 | disposition short-term general hospital (02) ==
LOC: ER 21:22
DX: K70.40 Alcoholic hepatic failure without coma (principal); R06.02 Shortness of breath; R14.0 Abdominal distension (gaseous); R19.5 Other fecal abnormalities; I10 Essential (primary) hypertension; F17.210 Nicotine dependence, cigarettes, uncomplicated
CPT/HCPCS: 74176; 80048; 80076; 81001; 82140; 82272; 83605; 83690; 85027; 85610; 85730; 96374; 99285